=== PATIENT | male | born 1995 | race Caucasian/White ===

== ENCOUNTER 2021-03-21 19:22 | Emergency (ER) | payer BC, SELFPAY ==
[2021-03-21 19:31] VITALS: BP 138/78; PULSE 88; RESP 18; TEMP 36.3; O2SAT 97; BMI 25.0
--- NOTE | 2021-03-21 20:10 | ED.DENTAL ---
HPI - Dental/Oral General Chief complaint: Dental/Oral <OLYA Johnson Last Filed: 03/22/21 01:27> Stated complaint: ear and jaw pain <OLYA Johnson Last Filed: 03/22/21 01:27> Time Seen by Provider: 03/21/21 20:10 <OLYA Johnson Last Filed: 03/22/21 01:27> History of Present Illness HPI Narrative: Patient complains of dental pain, and vomiting Patient had worsening right posterior lower toothache for 2-3 days that has become more and more severely painful so he has been taking what he describes as handfuls of Motrin and Tylenol when asked how many Tylenol he might have taken he says he did not know but probably more than 20 in this day and, and now he is nauseous and vomiting as well, he has no abdominal pain <OLYA Johnson Last Filed: 03/22/21 01:27> Related Data Home medications: Previous Rx's Medication Instructions Recorded amoxicillin 875 mg-potassium 1 tab PO Q12H #14 tab 03/22/21 clavulanate 125 mg tablet (Augmentin) morphine 15 mg immediate release 15 mg PO Q4-6H PRN #10 tab 03/22/21 tablet ondansetron HCl 4 mg tablet 4 mg PO Q6H PRN #10 tab 03/22/21 (Zofran) oxycodone 5 mg tablet 5 mg PO Q6H PRN #10 tab 03/22/21 <OLYA Johnson Last Filed: 03/22/21 01:27> Allergies/adverse reactions: Allergies Allergy/AdvReac Type Severity Reaction Status Date / Time No Known Allergies Allergy Unverified 01/21/20 16:22 [No Known Allergies*] <OLYA Johnson Last Filed: 03/22/21 01:27> Review of Systems Review of Systems: Positive for dental pain and vomiting Negatives are no fever no chills no dizziness no weakness no headache no chest pain no shortness of breath no abdominal pain no diarrhea no dysuria no skin rash no weakness or dizziness <OLYA Johnson Last Filed: 03/22/21 01:27> Yes all other systems are reviewed and are negative <OLYA Johnson Last Filed: 03/22/21 01:27> PMFSH Past Medical History Source: nursing notes reviewed <OLYA Johnson - Last Filed: 03/22/21 01:27> Medical History: Medical History (Updated 03/22/21 @ 01:22 by OLYA Johnson) Asthma <OLYA Johnson - Last Filed: 03/22/21 01:27> Social History Social History: Social History Advance Directives: No Advance Directives Information Provided: No <OLYA Johnson - Last Filed: 03/22/21 01:27> Physical Exam Vital Signs: Vital Signs: Last Vital Signs Temp 97.9 F 03/21/21 21:55 Pulse 67 03/22/21 01:28 Resp 19 03/22/21 01:28 BP 116/68 03/22/21 01:28 Pulse Ox 99 03/22/21 01:28 Body Mass Index 25.0 <OLYA Johnson - Last Filed: 03/22/21 01:27> Vital Signs: Last Vital Signs Temp 97.9 F 03/21/21 21:55 Pulse 67 03/22/21 01:28 Resp 19 03/22/21 01:28 BP 116/68 03/22/21 01:28 Pulse Ox 99 03/22/21 01:28 Body Mass Index 25.0 <Alice Pearl MD - Last Filed: 03/22/21 02:05> General appearance is not uncomfortable and moaning in pain from his tooth as well as retching and vomiting small amounts of non bilious vomit The pupils are anicteric, no pallor The pharynx is mildly dry but otherwise normal in appearance The dental exam shows a decayed and tender right lower rear molar, there is no fluctuant abscess on the gum there is no trismus there is no impairment of breathing or swallowing there is no drooling voice is normal and there is no swelling under the tongue Neck is supple The chest is cleared The abdomen is soft nontender Extremities full range of motion x4, no edema <OLYA Johnson - Last Filed: 03/22/21 01:27> Course Course Course Narrative: Patient's pain was relieved with morphine and nausea was relieved with Zofran and he was tolerating p.o. without vomiting Labs were sent with the concerned that he might have overdosed on his Tylenol as he said he was taking handfuls Tylenol level came back 76 AST and ALT were normal, bilirubin was 1.1 and albumin was 5.2, lactic was 2.2, PT was 13.6, INR 1.2, platelets were normal Case was discussed with attending physician Brittany who advised best plan is to repeat Tylenol level 4 hours after the 1st draw and re-evaluate At 01:00 the case was signed out pending results of lab draw and re-evaluation and discharge of patient <OLYA Johnson - Last Filed: 03/22/21 01:27> Reevaluation(s) Reevaluation #1: Patient signed out to me and on review of repeat Tylenol level it is now under the curve and patient is otherwise stable for discharge to home. <Alice Pearl MD - Last Filed: 03/22/21 02:05> Time: 02:04 <Alice Pearl MD - Last Filed: 03/22/21 02:05> MDM - Dental/Oral Lab Data Result diagrams: : 03/21/21 20:56 03/21/21 20:56 <OLYA Johnson - Last Filed: 03/22/21 01:27> Labs: Lab Results 03/21/21 03/21/21 03/21/21 Range/Units 20:56 20:56 20:56 WBC 11.8 H (4.8-10.8) X10*3/uL RBC 5.31 (4.60-5.80) X10*6/uL Hgb 15.4 (14.0-18.0) g/dl Hct 46.3 (42.0-52.0) % MCV 87.2 (80.0-98.0) fL MCH 29.0 (27.0-33.0) pg MCHC 33.3 (31.0-36.0) g/dl RDW 12.3 (11.0-16.0) % Plt Count 304 (160-400) X10*3/uL MPV 10.3 (9.4-12.4) fL Immature Gran % (Auto) 0.4 (0.0-0.4) % Neut % (Auto) 78.8 H (45-73) % Lymph % (Auto) 10.7 L (20-40) % [place] % (Auto) 9.8 (2-11) % Eos % (Auto) 0.0 (0-4) % Baso % (Auto) 0.3 (0-2) % Lymph # (Auto) 1.3 (1.2-4.9) X10*3/uL [place] # (Auto) 1.2 (0.1-1.2) X10*3/uL Eos # (Auto) 0.0 (0.0-0.4) X10*3/uL Baso # (Auto) 0.0 (0.0-0.2) X10*3/uL Abs Immat Gran (auto) 0.05 H (0.00-0.03) X10*3/uL Absolute Neuts (auto) 9.3 H (2.0-8.3) x10*3/uL Absolute Nucleated RBC 0.000 (0.0-0.012) X10*3/uL Nucleated RBC % (auto) 0.0 (0.0-0.2) /100WBC PT (9.9-13.0) SEC INR (0.9-1.1) Sodium 144 (135-145) mmol/L Potassium 4.0 (3.3-5.1) mmol/L Chloride 109 H (96-108) mmol/L Carbon Dioxide 22 (22-29) mmol/L Anion Gap 17 (12-20) BUN 13 (9-16) mg/dL Creatinine 1.35 (0.5-1.4) mg/dL Estim Creat Clear Calc 80.2 Estimated GFR > 60 Random Glucose 106 (60-115) mg/dL Lactic Acid 2.2 H* (0.5-2.0) mmol/L Lactic Acid Fup @ 2Hr (0.5-2.0) mmol/L Calcium 10.0 (8.4-10.2) mg/dL Total Bilirubin 1.1 H (0.0-1.0) mg/dL Direct Bilirubin 0.5 (0.0-0.5) mg/dL AST 16 (5-37) U/L ALT 19 (0-40) U/L Alkaline Phosphatase 47 (39-117) U/L Total Protein 7.5 (6.5-8.0) g/dL Albumin 5.2 H (3.5-5.0) g/dL Lipase 15 (8-78) U/L Urine Color Urine Appearance Urine pH (5.0-8.0) Ur Specific [place] (1.005-1.025) Urine Protein (NEG-TRACE) MG/DL Urine Glucose (UA) (NEG) MG/DL Urine Ketones (NEG) MG/DL Urine Blood (NEG) Urine Nitrite (NEG) Ur Leukocyte Esterase (NEG) Urine RBC (0) /HPF Urine WBC (0-4) /HPF Ur Squamous Epith Cells /LPF Urine Bacteria /LPF Urine Mucus /LPF Salicylates < 5.0 L (15-30) mg/dL Acetaminophen 78 H* (<30) mcg/mL 03/21/21 03/21/21 03/22/21 Range/Units 20:56 22:46 01:05 WBC (4.8-10.8) X10*3/uL RBC (4.60-5.80) X10*6/uL Hgb (14.0-18.0) g/dl Hct (42.0-52.0) % MCV (80.0-98.0) fL MCH (27.0-33.0) pg MCHC (31.0-36.0) g/dl RDW (11.0-16.0) % Plt Count (160-400) X10*3/uL MPV (9.4-12.4) fL Immature Gran % (Auto) (0.0-0.4) % Neut % (Auto) (45-73) % Lymph % (Auto) (20-40) % [place] % (Auto) (2-11) % Eos % (Auto) (0-4) % Baso % (Auto) (0-2) % Lymph # (Auto) (1.2-4.9) X10*3/uL [place] # (Auto) (0.1-1.2) X10*3/uL Eos # (Auto) (0.0-0.4) X10*3/uL Baso # (Auto) (0.0-0.2) X10*3/uL Abs Immat Gran (auto) (0.00-0.03) X10*3/uL Absolute Neuts (auto) (2.0-8.3) x10*3/uL Absolute Nucleated RBC (0.0-0.012) X10*3/uL Nucleated RBC % (auto) (0.0-0.2) /100WBC PT 13.6 H (9.9-13.0) SEC INR 1.2 H (0.9-1.1) Sodium (135-145) mmol/L Potassium (3.3-5.1) mmol/L Chloride (96-108) mmol/L Carbon Dioxide (22-29) mmol/L Anion Gap (12-20) BUN (9-16) mg/dL Creatinine (0.5-1.4) mg/dL Estim Creat Clear Calc Estimated GFR Random Glucose (60-115) mg/dL Lactic Acid (0.5-2.0) mmol/L Lactic Acid Fup @ 2Hr 1.7 (0.5-2.0) mmol/L Calcium (8.4-10.2) mg/dL Total Bilirubin (0.0-1.0) mg/dL Direct Bilirubin (0.0-0.5) mg/dL AST (5-37) U/L ALT (0-40) U/L Alkaline Phosphatase (39-117) U/L Total Protein (6.5-8.0) g/dL Albumin (3.5-5.0) g/dL Lipase (8-78) U/L Urine Color YELLOW Urine Appearance CLEAR Urine pH 6.0 (5.0-8.0) Ur Specific [place] >= 1.030 H (1.005-1.025) Urine Protein 1+ H (NEG-TRACE) MG/DL Urine Glucose (UA) NEG (NEG) MG/DL Urine Ketones 5 (NEG) MG/DL Urine Blood NEG (NEG) Urine Nitrite NEG (NEG) Ur Leukocyte Esterase NEG (NEG) Urine RBC 0-2 (0) /HPF Urine WBC 0-2 (0-4) /HPF Ur Squamous Epith Cells TRACE /LPF Urine Bacteria NONE /LPF Urine Mucus TRACE /LPF Salicylates (15-30) mg/dL Acetaminophen (<30) mcg/mL 03/22/21 Range/Units 01:05 WBC (4.8-10.8) X10*3/uL RBC (4.60-5.80) X10*6/uL Hgb (14.0-18.0) g/dl Hct (42.0-52.0) % MCV (80.0-98.0) fL MCH (27.0-33.0) pg MCHC (31.0-36.0) g/dl RDW (11.0-16.0) % Plt Count (160-400) X10*3/uL MPV (9.4-12.4) fL Immature Gran % (Auto) (0.0-0.4) % Neut % (Auto) (45-73) % Lymph % (Auto) (20-40) % [place] % (Auto) (2-11) % Eos % (Auto) (0-4) % Baso % (Auto) (0-2) % Lymph # (Auto) (1.2-4.9) X10*3/uL [place] # (Auto) (0.1-1.2) X10*3/uL Eos # (Auto) (0.0-0.4) X10*3/uL Baso # (Auto) (0.0-0.2) X10*3/uL Abs Immat Gran (auto) (0.00-0.03) X10*3/uL Absolute Neuts (auto) (2.0-8.3) x10*3/uL Absolute Nucleated RBC (0.0-0.012) X10*3/uL Nucleated RBC % (auto) (0.0-0.2) /100WBC PT (9.9-13.0) SEC INR (0.9-1.1) Sodium (135-145) mmol/L Potassium (3.3-5.1) mmol/L Chloride (96-108) mmol/L Carbon Dioxide (22-29) mmol/L Anion Gap (12-20) BUN (9-16) mg/dL Creatinine (0.5-1.4) mg/dL Estim Creat Clear Calc Estimated GFR Random Glucose (60-115) mg/dL Lactic Acid (0.5-2.0) mmol/L Lactic Acid Fup @ 2Hr (0.5-2.0) mmol/L Calcium (8.4-10.2) mg/dL Total Bilirubin (0.0-1.0) mg/dL Direct Bilirubin (0.0-0.5) mg/dL AST (5-37) U/L ALT (0-40) U/L Alkaline Phosphatase (39-117) U/L Total Protein (6.5-8.0) g/dL Albumin (3.5-5.0) g/dL Lipase (8-78) U/L Urine Color Urine Appearance Urine pH (5.0-8.0) Ur Specific [place] (1.005-1.025) Urine Protein (NEG-TRACE) MG/DL Urine Glucose (UA) (NEG) MG/DL Urine Ketones (NEG) MG/DL Urine Blood (NEG) Urine Nitrite (NEG) Ur Leukocyte Esterase (NEG) Urine RBC (0) /HPF Urine WBC (0-4) /HPF Ur Squamous Epith Cells /LPF Urine Bacteria /LPF Urine Mucus /LPF Salicylates (15-30) mg/dL Acetaminophen 42 H (<30) mcg/mL <OLYA Johnson - Last Filed: 03/22/21 01:27> Lab Results 03/21/21 03/21/21 03/21/21 Range/Units 20:56 20:56 20:56 WBC 11.8 H (4.8-10.8) X10*3/uL RBC 5.31 (4.60-5.80) X10*6/uL Hgb 15.4 (14.0-18.0) g/dl Hct 46.3 (42.0-52.0) % MCV 87.2 (80.0-98.0) fL MCH 29.0 (27.0-33.0) pg MCHC 33.3 (31.0-36.0) g/dl RDW 12.3 (11.0-16.0) % Plt Count 304 (160-400) X10*3/uL MPV 10.3 (9.4-12.4) fL Immature Gran % (Auto) 0.4 (0.0-0.4) % Neut % (Auto) 78.8 H (45-73) % Lymph % (Auto) 10.7 L (20-40) % [place] % (Auto) 9.8 (2-11) % Eos % (Auto) 0.0 (0-4) % Baso % (Auto) 0.3 (0-2) % Lymph # (Auto) 1.3 (1.2-4.9) X10*3/uL [place] # (Auto) 1.2 (0.1-1.2) X10*3/uL Eos # (Auto) 0.0 (0.0-0.4) X10*3/uL Baso # (Auto) 0.0 (0.0-0.2) X10*3/uL Abs Immat Gran (auto) 0.05 H (0.00-0.03) X10*3/uL Absolute Neuts (auto) 9.3 H (2.0-8.3) x10*3/uL Absolute Nucleated RBC 0.000 (0.0-0.012) X10*3/uL Nucleated RBC % (auto) 0.0 (0.0-0.2) /100WBC PT (9.9-13.0) SEC INR (0.9-1.1) Sodium 144 (135-145) mmol/L Potassium 4.0 (3.3-5.1) mmol/L Chloride 109 H (96-108) mmol/L Carbon Dioxide 22 (22-29) mmol/L Anion Gap 17 (12-20) BUN 13 (9-16) mg/dL Creatinine 1.35 (0.5-1.4) mg/dL Estim Creat Clear Calc 80.2 Estimated GFR > 60 Random Glucose 106 (60-115) mg/dL Lactic Acid 2.2 H* (0.5-2.0) mmol/L Lactic Acid Fup @ 2Hr (0.5-2.0) mmol/L Calcium 10.0 (8.4-10.2) mg/dL Total Bilirubin 1.1 H (0.0-1.0) mg/dL Direct Bilirubin 0.5 (0.0-0.5) mg/dL AST 16 (5-37) U/L ALT 19 (0-40) U/L Alkaline Phosphatase 47 (39-117) U/L Total Protein 7.5 (6.5-8.0) g/dL Albumin 5.2 H (3.5-5.0) g/dL Lipase 15 (8-78) U/L Urine Color Urine Appearance Urine pH (5.0-8.0) Ur Specific [place] (1.005-1.025) Urine Protein (NEG-TRACE) MG/DL Urine Glucose (UA) (NEG) MG/DL Urine Ketones (NEG) MG/DL Urine Blood (NEG) Urine Nitrite (NEG) Ur Leukocyte Esterase (NEG) Urine RBC (0) /HPF Urine WBC (0-4) /HPF Ur Squamous Epith Cells /LPF Urine Bacteria /LPF Urine Mucus /LPF Salicylates < 5.0 L (15-30) mg/dL Acetaminophen 78 H* (<30) mcg/mL 03/21/21 03/21/21 03/22/21 Range/Units 20:56 22:46 01:05 WBC (4.8-10.8) X10*3/uL RBC (4.60-5.80) X10*6/uL Hgb (14.0-18.0) g/dl Hct (42.0-52.0) % MCV (80.0-98.0) fL MCH (27.0-33.0) pg MCHC (31.0-36.0) g/dl RDW (11.0-16.0) % Plt Count (160-400) X10*3/uL MPV (9.4-12.4) fL Immature Gran % (Auto) (0.0-0.4) % Neut % (Auto) (45-73) % Lymph % (Auto) (20-40) % [place] % (Auto) (2-11) % Eos % (Auto) (0-4) % Baso % (Auto) (0-2) % Lymph # (Auto) (1.2-4.9) X10*3/uL [place] # (Auto) (0.1-1.2) X10*3/uL Eos # (Auto) (0.0-0.4) X10*3/uL Baso # (Auto) (0.0-0.2) X10*3/uL Abs Immat Gran (auto) (0.00-0.03) X10*3/uL Absolute Neuts (auto) (2.0-8.3) x10*3/uL Absolute Nucleated RBC (0.0-0.012) X10*3/uL Nucleated RBC % (auto) (0.0-0.2) /100WBC PT 13.6 H (9.9-13.0) SEC INR 1.2 H (0.9-1.1) Sodium (135-145) mmol/L Potassium (3.3-5.1) mmol/L Chloride (96-108) mmol/L Carbon Dioxide (22-29) mmol/L Anion Gap (12-20) BUN (9-16) mg/dL Creatinine (0.5-1.4) mg/dL Estim Creat Clear Calc Estimated GFR Random Glucose (60-115) mg/dL Lactic Acid (0.5-2.0) mmol/L Lactic Acid Fup @ 2Hr 1.7 (0.5-2.0) mmol/L Calcium (8.4-10.2) mg/dL Total Bilirubin (0.0-1.0) mg/dL Direct Bilirubin (0.0-0.5) mg/dL AST (5-37) U/L ALT (0-40) U/L Alkaline Phosphatase (39-117) U/L Total Protein (6.5-8.0) g/dL Albumin (3.5-5.0) g/dL Lipase (8-78) U/L Urine Color YELLOW Urine Appearance CLEAR Urine pH 6.0 (5.0-8.0) Ur Specific [place] >= 1.030 H (1.005-1.025) Urine Protein 1+ H (NEG-TRACE) MG/DL Urine Glucose (UA) NEG (NEG) MG/DL Urine Ketones 5 (NEG) MG/DL Urine Blood NEG (NEG) Urine Nitrite NEG (NEG) Ur Leukocyte Esterase NEG (NEG) Urine RBC 0-2 (0) /HPF Urine WBC 0-2 (0-4) /HPF Ur Squamous Epith Cells TRACE /LPF Urine Bacteria NONE /LPF Urine Mucus TRACE /LPF Salicylates (15-30) mg/dL Acetaminophen (<30) mcg/mL 03/22/21 Range/Units 01:05 WBC (4.8-10.8) X10*3/uL RBC (4.60-5.80) X10*6/uL Hgb (14.0-18.0) g/dl Hct (42.0-52.0) % MCV (80.0-98.0) fL MCH (27.0-33.0) pg MCHC (31.0-36.0) g/dl RDW (11.0-16.0) % Plt Count (160-400) X10*3/uL MPV (9.4-12.4) fL Immature Gran % (Auto) (0.0-0.4) % Neut % (Auto) (45-73) % Lymph % (Auto) (20-40) % [place] % (Auto) (2-11) % Eos % (Auto) (0-4) % Baso % (Auto) (0-2) % Lymph # (Auto) (1.2-4.9) X10*3/uL [place] # (Auto) (0.1-1.2) X10*3/uL Eos # (Auto) (0.0-0.4) X10*3/uL Baso # (Auto) (0.0-0.2) X10*3/uL Abs Immat Gran (auto) (0.00-0.03) X10*3/uL Absolute Neuts (auto) (2.0-8.3) x10*3/uL Absolute Nucleated RBC (0.0-0.012) X10*3/uL Nucleated RBC % (auto) (0.0-0.2) /100WBC PT (9.9-13.0) SEC INR (0.9-1.1) Sodium (135-145) mmol/L Potassium (3.3-5.1) mmol/L Chloride (96-108) mmol/L Carbon Dioxide (22-29) mmol/L Anion Gap (12-20) BUN (9-16) mg/dL Creatinine (0.5-1.4) mg/dL Estim Creat Clear Calc Estimated GFR Random Glucose (60-115) mg/dL Lactic Acid (0.5-2.0) mmol/L Lactic Acid Fup @ 2Hr (0.5-2.0) mmol/L Calcium (8.4-10.2) mg/dL Total Bilirubin (0.0-1.0) mg/dL Direct Bilirubin (0.0-0.5) mg/dL AST (5-37) U/L ALT (0-40) U/L Alkaline Phosphatase (39-117) U/L Total Protein (6.5-8.0) g/dL Albumin (3.5-5.0) g/dL Lipase (8-78) U/L Urine Color Urine Appearance Urine pH (5.0-8.0) Ur Specific [place] (1.005-1.025) Urine Protein (NEG-TRACE) MG/DL Urine Glucose (UA) (NEG) MG/DL Urine Ketones (NEG) MG/DL Urine Blood (NEG) Urine Nitrite (NEG) Ur Leukocyte Esterase (NEG) Urine RBC (0) /HPF Urine WBC (0-4) /HPF Ur Squamous Epith Cells /LPF Urine Bacteria /LPF Urine Mucus /LPF Salicylates (15-30) mg/dL Acetaminophen 42 H (<30) mcg/mL <Alice Pearl MD - Last Filed: 03/22/21 02:05> Discharge Plan Discharge Clinical Impression: Dental caries, Accidental acetaminophen overdose, Vomiting <OLYA Johnson - Last Filed: 03/22/21 01:27> Patient Disposition: Home, Self-Care <OLYA Johnson - Last Filed: 03/22/21 01:27> Additional Instructions: Are testing showed that you overdosed on Tylenol but likely you have not caused critical injury Always use medication as prescribed and Tylenol in particular can be very dangerous if too much is taken It will not help pain in any way to take more than the recommended dose of Tylenol or Motrin Follow with dentist for dental pain and we started an antibiotic as well as pain medicine Return to the ER any time any worse condition or any concerns <OLYA Johnson - Last Filed: 03/22/21 01:27> Prescriptions: New ondansetron HCl [Zofran] 4 mg tablet 4 mg PO Q6H PRN (Reason: nausea and vomiting) Qty: 10 RF: 0 amoxicillin-pot clavulanate [Augmentin] 875-125 mg tablet 1 tab PO Q12H Qty: 14 RF: 0 oxycodone 5 mg tablet 5 mg PO Q6H PRN (Reason: pain) Qty: 10 RF: 0 morphine 15 mg tablet 15 mg PO Q4-6H PRN (Reason: pain) Qty: 10 RF: 0 <OLYA Johnson - Last Filed: 03/22/21 01:27> Referrals: Janak Graham DO, MD [Primary Care Provider] - 2 days <OLYA Johnson - Last Filed: 03/22/21 01:27>
[2021-03-21 21:01] LABS: MANUAL DIFF FLAG NO
[2021-03-21 21:03] LABS: Basophils Percent Auto 0.3 % (0-2); Hematocrit 46.3 % (42.0-52.0); Hemoglobin 15.4 g/dl (14.0-18.0); Imm Gran Abs Auto 0.05 X10*3/uL (0.00-0.03); Imm Gran Pct Auto 0.4 % (0.0-0.4); Lymphocytes Absolute Auto 1.3 X10*3/uL (1.2-4.9); Lymphocytes Percent Auto 10.7 % (20-40); Mean Corpuscular HGB Conc 33.3 g/dl (31.0-36.0); Mean Corpuscular Volume 87.2 fL (80.0-98.0); Mean Platelet Volume 10.3 fL (9.4-12.4); Monocytes Absolute Auto 1.2 X10*3/uL (0.1-1.2); Monocytes Percent Auto 9.8 % (2-11); Neutrophils Absolute Auto 9.3 x10*3/uL (2.0-8.3); Neutrophils Percent Auto 78.8 % (45-73); Platelet Count 304 X10*3/uL (160-400); Red Blood Count 5.31 X10*6/uL (4.60-5.80); Red Cell Distribution Width 12.3 % (11.0-16.0); White Blood Count 11.8 X10*3/uL (4.8-10.8)
[2021-03-21 21:11] LABS: INTERNATIONAL NORM RATIO 1.2 (0.9-1.1); Prothrombin Time 13.6 SEC (9.9-13.0)
[2021-03-21 21:20] LABS: Lactic Acid 2.2 mmol/L (0.5-2.0)
[2021-03-21] MEDS: Morphine Sulfate 4 MG/ML CARTRIDGE IVPUSH ×2 (21:21→22:13)
[2021-03-21] MEDS: ondansetron HCL 4 MG/2 ML VIAL IVPUSH ×2 (21:22→23:13)
[2021-03-21 21:25] LABS: Alanine Aminotransferase 19 U/L (0-40); Albumin Level 5.2 g/dL (3.5-5.0); Alkaline Phosphatase 47 U/L (39-117); Anion Gap 17 (12-20); Aspartate Amino Transferase 16 U/L (5-37); Bilirubin Direct 0.5 mg/dL (0.0-0.5); Bilirubin Total 1.1 mg/dL (0.0-1.0); Blood Urea Nitrogen 13 mg/dL (9-16); Carbon Dioxide 22 mmol/L (22-29); Chloride 109 mmol/L (96-108); Creatinine Clr Calc Pharmacy 80.2; Estimated Glomerular Filt Rate > 60; Glucose Random 106 mg/dL (60-115); Lipase 15 U/L (8-78); Salicylate < 5.0 mg/dL (15-30); Sodium 144 mmol/L (135-145); Total Protein 7.5 g/dL (6.5-8.0)
[2021-03-21 21:28] VITALS: PULSE 77; RESP 16; O2SAT 99
[2021-03-21] MEDS: 0.9 % Sodium Chloride 1,000 ML 999 ML IVCONT (21:43)
[2021-03-21 21:55] VITALS: BP 138/79; PULSE 59; RESP 20; TEMP 36.6; O2SAT 100
[2021-03-21 22:53] LABS: Appearance Urine CLEAR; Color Urine YELLOW; Glucose Urine UA NEG (NEG); Leukocyte Esterase Urine NEG (NEG); Nitrite Urine NEG (NEG); Specific Gravity - Urine >= 1.030 (1.005-1.025); UACC Culture Trigger NO; Urine Blood NEG (NEG); Urine Ketones 5 MG/DL (NEG); Urine Protein 1+ MG/DL (NEG-TRACE)
[2021-03-21 22:53] LABS: Acetaminophen LAB 78 mcg/mL (<30)
[2021-03-21 23:00] LABS: Reflex Lactate? Lactic Acid Added
[2021-03-21 23:07] LABS: RBC Urine 0-2 /HPF (0); Squamous Epithelial Cell Urine TRACE /LPF; WBC Urine 0-2 /HPF (0-4)
[2021-03-21 23:08] LABS: Mucus Urine TRACE /LPF
--- NOTE | 2021-03-22 00:27 | PC.NURSE ---
PER OLYA VINCENT, WE ARE NOT CONCERNED FOR LAC AT THIS TIME NO DRAW NEEDED. PT WILL GET REPEAT ACETAMINOPHEN AT 12:56 AM.
[2021-03-22] MEDS: Amoxicillin/Potassium Clav 875 MG TABLET PO (00:50)
--- NOTE | 2021-03-22 00:57 | PC.NURSE ---
PT MOVED TO MAIN ED BED 20 REPORT GIVEN TO ANAHI STEWART.
[2021-03-22 01:24] LABS: ~Lactic Acid-LAB USE ONLY 1.7 mmol/L (0.5-2.0)
[2021-03-22] MEDS: oxyCODONE HCl Immed Release 5 MG TABLET 10 MG PO (01:26)
[2021-03-22 01:28] VITALS: BP 116/68; PULSE 67; RESP 19; O2SAT 99
[2021-03-22 01:28] LABS: Acetaminophen LAB 42 mcg/mL (<30)
[2021-03-22 03:44] VITALS: BP 136/72; PULSE 66; RESP 19; TEMP 37.1; O2SAT 96
== END 2021-03-22 03:55 | disposition home or self-care (01) ==
PROVIDERS: Physician Assistant Medical; Emergency Provider Emergency Medicine; PCP Internal Medicine
DX: K02.9 Dental caries, unspecified (principal); T39.1X1A Poisoning by 4-Aminophenol derivatives, accidental (unintentional), initial encounter; Y92.009 Unspecified place in unspecified non-institutional (private) residence as the place of occurrence of the external cause; R11.10 Vomiting, unspecified; Z79.899 Other long term (current) drug therapy
CPT/HCPCS: 36415; 80048; 80076; 80143; 80179; 81001; 83605; 83690; 85025; 85610; 96361; 96374; 96375; 96376; 99284; J2270; J2405

== ENCOUNTER 2024-06-24 19:51 | Inpatient (IN) | payer MEDICAID, SELFPAY ==
--- NOTE | ~2024-06-24 | CT_ITS ---
EXAMINATION: CT ABDOMEN AND PELVIS WITHOUT AND WITH CONTRAST CLINICAL INFORMATION: Lower abdominal pain, coffee-ground emesis, dark stool. COMPARISON: CT abdomen and pelvis 10/05/2017 TECHNIQUE: Multidetector volumetric imaging was performed of the abdomen and pelvis before and after the IV administration of 80 mL of Omnipaque 300 intravenous contrast. There are acquisitions acquired in noncontrast, arterial phase, and in the delayed phase of enhancement. Sagittal and coronal reformatted images were obtained on the technologist's workstation. This CT examination was performed using dose optimization techniques as appropriate, variously including the following: *Automated exposure control *Adjustment of mA and/or kV according to patient size (this includes techniques or standardized protocols for targeted exams where dose is matched to indication/reason for exam; i.e. extremities or head) *Use of iterative reconstruction technique FINDINGS: LUNG BASES: The visualized lung bases are unremarkable. LIVER, GALLBLADDER, AND BILIARY TREE: The liver is normal in size, shape, and attenuation. No focal hepatic lesion or biliary ductal dilatation is present. The gallbladder is unremarkable with no evidence of radiopaque gallstones, gallbladder wall thickening, or obvious pericholecystic inflammatory changes. PANCREAS: Unremarkable SPLEEN: Unremarkable ADRENAL GLANDS: Unremarkable KIDNEYS AND URETERS: The kidneys are normal in size, shape, and attenuation. No hydronephrosis or hydroureter. 2 mm nonobstructing calculus right mid pole. No perinephric stranding. BLADDER: Unremarkable GASTROINTESTINAL TRACT: Small type I hiatus hernia. -Diffuse wall thickening and hyperenhancement of the stomach, with mild hyperattenuation in the posterior body of the stomach, which also demonstrates mild enhancement on the arterial phase. (Series 9, image 32). No definite contrast pooling or extravasation seen on delayed phase. -On the arterial phase, there is a posterior focus of transmural enhancement within the duodenal bulb, best seen series 16, image 90 -No small bowel foci of hyperattenuation or enhancement. No pooling seen. -No colonic foci of hyperattenuation or definitive abnormal enhancement. No pooling seen. No wall thickening or inflammation evident. -A normal appendix is visualized. There is no rectal abnormalities. ABDOMINAL WALL: No significant hernia is appreciated. LYMPH NODES: None enlarged by size criteria. VASCULAR: Unremarkable PELVIC VISCERA: Unremarkable OSSEOUS STRUCTURES: Unremarkable CT/CT gi bleed abd pel wo/w IVcon IMPRESSION: 1. Findings consistent with gastritis with wall thickening and mucosal hyperenhancement. Possible subtle focus of enhancement on the delayed acquisition within the posterior gastric body. No pooling. There is also some a linear focus of hyperenhancement of the posterior duodenal bulb without pooling present. Findings are suspicious for duodenal peptic ulcer/ bleeding, but are subtle findings and not definitive. Correlation with EGD is recommended. 2. No evidence of active bleeding in the small bowel, duodenum, or colon. No inflammation or dilatation seen. 3. Small type I hiatus hernia. 4. 2 mm nonobstructing right renal calculus. Electronically signed by: Rajan Castillo MD 06/25/2024 11:25 AM [facility]
--- NOTE | ~2024-06-24 | XR_ITS ---
CLINICAL HISTORY: cough 2 view chest x-ray Comparison: None Findings: The lungs are clear. Normal size heart. No acute fracture. IMPRESSION: 1. No acute findings. This document has been electronically signed by: Maci Valero MD on 06/24/2024 20:31:59
[2024-06-24 20:00] VITALS: BP 116/70; PULSE 94; RESP 20; TEMP 37.1; O2SAT 98; BMI 25.8
--- NOTE | 2024-06-24 20:01 | ECG_ITS ---
Test Reason : abd pain Blood Pressure : */* mmHG Vent. Rate : 85 BPM Atrial Rate : 85 BPM P-R Int : 124 ms QRS Dur : 82 ms QT Int : 340 ms P-R-T Axes : 60 49 27 degrees QTcB Int : 404 ms Normal sinus rhythm with sinus arrhythmia Normal ECG No previous ECGs available Referred By: Marquise Quintero Electronically Signed By: CONNER MCDONALD
--- NOTE | 2024-06-24 20:01 | ED.GENADULT ---
HPI - General Adult General Chief complaint: Abdominal Pain Stated complaint: Flu A - Sent by Urgent Care Time Seen by Provider: 06/25/24 09:03 Source: patient and RN notes reviewed Mode of arrival: ambulatory Limitations: no limitations History of Present Illness ED Provider: Agata Weldon PA-C [facility] narrative: This is a 28-year-old male, with no known medical problems, who presents emergency department with concerns for cough, congestion, intermittent chest pain which only occurs with coughing, abdominal pain, nausea, vomiting and diarrhea. Patient states that his symptoms started off with coughing congestion on Saturday, 4 days ago, and then over the last several days he has developed lower abdominal pain. Patient reports that on Saturday he noticed coffee-ground appearing emesis, and dark stool. Patient reports that he has been taking cold and flu medications. He denies any Pepto-Bismol use. He reports subjective fevers and chills. Also endorsing body aches. He does report lower abdominal pain. Denies history of similar symptoms in the past. He does not regularly drink alcohol. Patient reports that he does take ibuprofen, I asked if he takes ibuprofen every day, he replies no. He states that he has been taking cold and flu medication for his symptoms. No other complaints or concerns at this time. MD complaint: Abdominal pain, nausea, vomiting, cough Onset (ago): day(s) Relieving factors: none Exacerbating factors: none Associated symptoms: denies other symptoms Treatments prior to arrival: none Related Data Home Medications ?Medication ?Instructions ?Recorded ?Confirmed No Known Home Meds 06/25/24 06/25/24 Allergies Allergy/AdvReac Type Severity Reaction Status Date / Time No Known Allergies Allergy Verified 06/24/24 20:01 [No Known Allergies*] Review of Systems Review of Systems: Yes all other systems are reviewed and are negative Constitutional: Constitutional: Reports as per [facility] Past Medical History Medical History (Updated 06/25/24 @ 14:52 by OLYA Ibarra) Asthma Social History Social History Smoked in Last 30 Days: Yes Advance Directives: No Advance Directives Information Provided: Yes Physical Exam ED Vital Signs: Vital Signs - 24 hr 06/24/24 20:00 06/25/24 04:21 06/25/24 09:01 Temperature 98.7 F 99.2 F Pulse Rate 94 76 76 Respiratory Rate 20 20 17 Blood Pressure 116/70 109/77 127/71 Pulse Oximetry 98 98 98 Oxygen Delivery Method Room Air Room Air Room Air 06/25/24 12:19 Temperature 97.5 F Pulse Rate 78 Respiratory Rate 17 Blood Pressure 121/71 Pulse Oximetry 99 Oxygen Delivery Method Room Air BMI result Body Mass Index 25.8 Const General: cooperative, comfortable and no acute distress Orientation/consciousness: patient oriented x3 Limitations: no limitations HENMT Head: Yes normal to inspection, Yes normocephalic and Yes atraumatic Ears: hearing grossly normal bilaterally General nose exam: Normal external nose present Face and sinus: Yes normal facial exam Mouth: Normal oral and palatal mucosa present, oropharynx normal and moist mucous membranes Throat: Yes posterior oropharynx normal Eyes General: appearance normal, both eyes and all related structures Eyelids: Yes eyelids normal Conjunctivae: conjunctivae normal Sclerae: sclerae normal Pupils: Equal, round and reactive pupils present EOM: EOMs intact bilaterally Neck Neck: Yes normal visual inspection, Yes full ROM and Yes no lymphadenopathy Lymphatic: no lymphadenopathy noted Chest Chest palpation & inspection: normal inspection of the chest Resp Effort & Inspection: normal respiratory effort and able to speak in complete sentences Auscultation: clear to auscultation bilaterally, no crackles, no rales, no rhonchi and no wheezes Cardio Rate: regular rate Rhythm: regular rhythm Heart sounds: S1 normal heart sound present and S2 normal heart sound present GI Other: Abdomen is soft, with tenderness palpation in the lower abdomen, guarding noted. Patient refusing rectal exam. Stool is dark however does not appear to be black. Inspection: Yes normal to inspection Skin General skin exam: no rashes or lesions noted Trauma: no lacerations or abrasions Wounds: no wounds Neuro General: patient oriented x3 and moves all extremities Cranial nerves: Yes Equal, round and reactive pupils present Extrem General: Yes normal to inspection Right upper extremity: normal to inspection Left upper extremity: normal to inspection Right lower extremity: normal to inspection Left lower extremity: normal to inspection Course Course Course Narrative: RME, this is a rapid medical exam performed by Shen Quintero please refer to primary provider for complete H&P- 28-year-old male presents for evaluation of vomiting ?coffee-grounds. ? The patient has been coughing and vomiting since Saturday. He went to urgent care and tested positive for the flu. In his words he reports that yesterday he was vomiting coffee-grounds. Plan for labs including H&H and coags. Reevaluation(s) Reevaluation #1: CT scan returns revealing findings consistent with gastritis with wall thickening and mucosal enhancement. Possible subtle focus of enhancement on the delayed acquisition within the posterior gastric body. No pooling. There is also some linear focus of hyperenhancement of the posterior duodenal bulb without pooling present. Findings are suspicious for duodenal peptic ulcer/bleeding. They are subtle findings but not definitive. Recommending correlation with EGD. No evidence of active bleeding in the small bowel, duodenum or colon. No inflammation or dilatation seen. There is a small type 1 hiatal hernia, and a 2 mm nonobstructing right renal calculus. Stool occult was collected and sent, negative today. Patient refuses rectal exam. We will reach out to Dr. Villalta, GI specialist for further recommendations. Time: 12:14 Reevaluation #2: Dr. Villalta recommending repeat CBC after IV fluids. Time: 12:53 Reevaluation #3: Repeat CBC revealing drop in hemoglobin and hematocrit at 13 0.9/40.7. I discussed with Dr. Villalta, who states that patient should be admitted for GI bleed. He was brought to my attention by the hospitalist that he disclosed that he was taking handfuls of Tylenol and Motrin, he did not disclose this to me. I added on a Tylenol and salicylate level to his workup. Time: 14:52 Additional Reevaluation(s): 1549 - Tylenol and salicylate levels within normal limits transfer of care initiated to the hospital service. 1604 - Hospitalist requesting poison control consultation given patient reporting taking handfuls of ibuprofen. No AYSHA, no acidosis, provide supportive care, no trending labs other than H&H. No other interventions at this time. When I discussed with patient, he is unable to report to me when the last time he took a ?handful? of ibuprofen. He states that he does not take handfuls of Tylenol. States that he believes he lasted the several days ago however he is unable to quantify nor tell me specifically when the last time he did this. I stressed the importance of not doing this as this can be very harmful to his health. Transfer of care initiated to the hospital service. Medications Administered Generic Name Dose Route Start Last Admin Trade Name Freq PRN Reason Stop Dose Admin Sodium Chloride 1,000 mls @ 100 mls/hr 06/25/24 15:15 06/25/24 16:03 Ns IVCONT 100 mls/hr .Q10H CHARLENE Administration Ondansetron HCl 4 mg 06/25/24 15:15 06/25/24 16:01 Ondansetron Hcl 4 Mg/2 Ml Vial IVPUSH 4 mg Q6H CHARLENE Administration Pantoprazole Sodium 40 mg 06/25/24 16:30 06/25/24 16:01 Pantoprazole Sodium 40 Mg/10 Ml Vial IVPUSH 40 mg BID@0630,1630 CHARLENE Administration Sodium Chloride 3 ml 06/25/24 16:00 06/25/24 16:05 0.9 % Sodium Chloride Flush 3 Ml Syringe IVFLUSH Not Given QSHIFT CHARLENE Discontinued Medications Generic Name Dose Route Start Last Admin Trade Name Freq PRN Reason Stop Dose Admin Diphenhydramine HCl 25 mg 06/25/24 10:12 06/25/24 10:18 Diphenhydramine Hcl 50 Mg/Ml Vial IVPUSH 06/25/24 10:13 25 mg ONCE ONE Administration Acetaminophen 1,000 mg in 100 mls @ 400 mls/hr 06/25/24 09:14 06/25/24 10:37 Ofirmev IV 06/25/24 09:28 Infused ONCE ONE Infusion Lactated Ringer's 1,000 mls @ 999 mls/hr 06/25/24 09:17 06/25/24 11:11 Lr IV 06/25/24 10:17 Infused .Q1H1M ONE Infusion Lactated Ringer's 1,000 mls @ 999 mls/hr 06/25/24 11:51 06/25/24 13:44 Lr IV 06/25/24 12:51 Infused .Q1H1M ONE Infusion Iohexol 100 ml 06/25/24 11:04 06/25/24 11:04 Iohexol 350 Mg/Ml 100 Ml Infus..Btl IV 06/25/24 11:05 80 ml ONCE ONE Administration Metoclopramide HCl 10 mg 06/25/24 10:12 06/25/24 10:18 Metoclopramide Hcl 10 Mg/2 Ml Vial IVPUSH 06/25/24 10:13 10 mg ONCE ONE Administration Ondansetron HCl 4 mg 06/25/24 04:23 06/25/24 04:25 Ondansetron Odt 4 Mg Tab.[place]ina CHANG 06/25/24 04:24 4 mg ONCE ONE Administration Pantoprazole Sodium 80 mg 06/25/24 09:23 06/25/24 09:57 Pantoprazole Sodium 40 Mg/10 Ml Vial IVPUSH 06/25/24 09:24 80 mg ONCE ONE Administration Medical Decision Making Medical Decision Making [facility] Narrative: This is a 28-year-old male who presents emergency department with abdominal pain, and dark vomit and dark stool. Patient was diagnosed with influenza at an urgent care yesterday but was sent to the emergency room secondary to coffee-ground appearing vomit. Patient has been in the emergency room for approximately 13 hours prior to being seen secondary to prolonged wait times. I evaluated patient at approximately 9:05 a.m. this morning. Labs were performed at 9:16 p.m. yesterday therefore repeat labs were ordered. Initial labs revealed no leukocytosis, stable H&H, BUN 22, creatinine 1.04. Given elevated BUN to creatinine ratio, this can indicate GI bleed. Abdomen is soft however patient with tenderness palpation in the lower abdomen. No rebound, positive guarding. Urine with high specific gravity, does not appear to be infected. We will repeat labs, hydrate with LR, we will also medicate with Protonix, and Tylenol. We will continue to monitor. He is not feeling nauseous at this time. Chest x-ray was ordered revealing no acute findings. Plan: Labs, UA, Differential Diagnosis Differential Diagnoses: The differential diagnosis associated with the presentation includes GI bleed, gastritis, peptic ulcer disease, bleeding ulcer, Alexandra-Bautista tear-unlikely, dehydration, electrolyte derangement Lab Data [facility] Lab Attestation statement: I reviewed the patient's lab results. See [facility] 06/25/24 15:21 06/25/24 09:28 Labs: Lab Results 06/24/24 06/25/24 06/25/24 Range/Units 21:16 04:26 09:28 WBC 6.1 6.3 (4.8-10.8) X10*3/uL RBC 5.52 5.45 (4.60-5.80) X10*6/uL Hgb 16.3 16.1 (14.0-18.0) g/dl Hct 47.6 46.8 (42.0-52.0) % MCV 86.2 85.9 (80.0-98.0) fL MCH 29.5 29.5 (27.0-33.0) pg MCHC 34.2 34.4 (31.0-36.0) g/dl RDW 12.5 12.7 (11.0-16.0) % Plt Count 165 D 158 L (160-400) X10*3/uL MPV 10.3 10.3 (9.4-12.4) fL Immature Gran % (Auto) 0.7 H 0.3 (0.0-0.4) % Neut % (Auto) 63.0 51.8 (45-73) % Lymph % (Auto) 15.7 L 28.2 (20-40) % [place] % (Auto) 17.7 H 19.1 H (2-11) % Eos % (Auto) 2.6 0.0 (0-4) % Baso % (Auto) 0.3 0.6 (0-2) % Lymph # (Auto) 1.0 L 1.8 (1.2-4.9) X10*3/uL [place] # (Auto) 1.1 1.2 (0.1-1.2) X10*3/uL Eos # (Auto) 0.2 0.0 (0.0-0.4) X10*3/uL Baso # (Auto) 0.0 0.0 (0.0-0.2) X10*3/uL Abs Immat Gran (auto) 0.04 H 0.02 (0.00-0.03) X10*3/uL Absolute Neuts (auto) 3.8 3.2 (2.0-8.3) x10*3/uL Absolute Nucleated RBC 0.000 0.000 (0.0-0.012) X10*3/uL Nucleated RBC % (auto) 0.0 0.0 (0.0-0.2) /100WBC PT 12.6 H (10.9-12.4) SEC INR 1.1 (0.9-1.1) Sodium 141 140 (135-145) mmol/L Potassium 4.2 4.2 (3.3-5.1) mmol/L Chloride 106 106 (96-108) mmol/L Carbon Dioxide 24 23 (22-29) mmol/L Anion Gap 15 15 (12-20) BUN 22 H 24 H (9-16) mg/dL Creatinine 1.04 0.86 (0.5-1.4) mg/dL Estim Creat Clear Calc 101.3 122.6 Estimated GFR > 60 > 60 Random Glucose 93 85 (60-115) mg/dL Calcium 9.5 9.1 (8.4-10.2) mg/dL Magnesium 1.9 (1.6-2.6) mg/dL Total Bilirubin 0.7 0.8 (0.0-1.0) mg/dL AST 34 32 (5-37) U/L ALT 34 32 (0-40) U/L Alkaline Phosphatase 63 59 (39-117) U/L Total Protein 8.3 H 8.1 H (6.5-8.0) g/dL Albumin 4.9 4.7 (3.5-5.0) g/dL Lipase 18 (8-78) U/L Urine Color Dark Yellow Urine Appearance Clear Urine pH 5.5 (5.0-9.0) Ur Specific [place] >= 1.030 H (1.005-1.025) Urine Protein 30 (1+) H (Neg-Trace) mg/dL Urine Glucose (UA) Negative (Negative) mg/dL Urine Ketones 40 (Negative) mg/dL Urine Blood Negative (Negative) Urine Nitrite Negative (Negative) Ur Leukocyte Esterase Negative (Negative) Urine RBC 0-2 (0-2) /HPF Urine WBC 0-5 (0-5) /HPF Ur Squamous Epith Cells 0-2 (0-2) /HPF Urine Bacteria None Seen (None Seen) Hyaline Casts 3-5 (0-2) /LPF Stool Occult Blood (NEGATIVE) Salicylates (15-30) mg/dL Acetaminophen (<30) mcg/mL Ethyl Alcohol < 10 mg/dL Influenza Type A (PCR) (Negative) Influenza Type B (PCR) (Negative) RSV RNA Qual (PCR) (Negative) SARS-CoV-2 RNA (RT-PCR) (Negative) 06/25/24 06/25/24 06/25/24 Range/Units 11:54 14:05 14:58 WBC 5.3 (4.8-10.8) X10*3/uL RBC 4.72 (4.60-5.80) X10*6/uL Hgb 13.9 L (14.0-18.0) g/dl Hct 40.7 L (42.0-52.0) % MCV 86.2 (80.0-98.0) fL MCH 29.4 (27.0-33.0) pg MCHC 34.2 (31.0-36.0) g/dl RDW 12.5 (11.0-16.0) % Plt Count 137 L (160-400) X10*3/uL MPV 10.3 (9.4-12.4) fL Immature Gran % (Auto) 0.4 (0.0-0.4) % Neut % (Auto) 39.4 L (45-73) % Lymph % (Auto) 43.5 H (20-40) % [place] % (Auto) 16.3 H (2-11) % Eos % (Auto) 0.0 (0-4) % Baso % (Auto) 0.4 (0-2) % Lymph # (Auto) 2.3 (1.2-4.9) X10*3/uL [place] # (Auto) 0.9 (0.1-1.2) X10*3/uL Eos # (Auto) 0.0 (0.0-0.4) X10*3/uL Baso # (Auto) 0.0 (0.0-0.2) X10*3/uL Abs Immat Gran (auto) 0.02 (0.00-0.03) X10*3/uL Absolute Neuts (auto) 2.1 (2.0-8.3) x10*3/uL Absolute Nucleated RBC 0.000 (0.0-0.012) X10*3/uL Nucleated RBC % (auto) 0.0 (0.0-0.2) /100WBC PT (10.9-12.4) SEC INR (0.9-1.1) Sodium (135-145) mmol/L Potassium (3.3-5.1) mmol/L Chloride (96-108) mmol/L Carbon Dioxide (22-29) mmol/L Anion Gap (12-20) BUN (9-16) mg/dL Creatinine (0.5-1.4) mg/dL Estim Creat Clear Calc Estimated GFR Random Glucose (60-115) mg/dL Calcium (8.4-10.2) mg/dL Magnesium (1.6-2.6) mg/dL Total Bilirubin (0.0-1.0) mg/dL AST (5-37) U/L ALT (0-40) U/L Alkaline Phosphatase (39-117) U/L Total Protein (6.5-8.0) g/dL Albumin (3.5-5.0) g/dL Lipase (8-78) U/L Urine Color Urine Appearance Urine pH (5.0-9.0) Ur Specific [place] (1.005-1.025) Urine Protein (Neg-Trace) mg/dL Urine Glucose (UA) (Negative) mg/dL Urine Ketones (Negative) mg/dL Urine Blood (Negative) Urine Nitrite (Negative) Ur Leukocyte Esterase (Negative) Urine RBC (0-2) /HPF Urine WBC (0-5) /HPF Ur Squamous Epith Cells (0-2) /HPF Urine Bacteria (None Seen) Hyaline Casts (0-2) /LPF Stool Occult Blood NEGATIVE (NEGATIVE) Salicylates (15-30) mg/dL Acetaminophen (<30) mcg/mL Ethyl Alcohol mg/dL Influenza Type A (PCR) POSITIVE A (Negative) Influenza Type B (PCR) NEGATIVE (Negative) RSV RNA Qual (PCR) NEGATIVE (Negative) SARS-CoV-2 RNA (RT-PCR) NEGATIVE (Negative) 06/25/24 Range/Units 15:21 WBC (4.8-10.8) X10*3/uL RBC (4.60-5.80) X10*6/uL Hgb 14.9 (14.0-18.0) g/dl Hct 43.9 (42.0-52.0) % MCV (80.0-98.0) fL MCH (27.0-33.0) pg MCHC (31.0-36.0) g/dl RDW (11.0-16.0) % Plt Count (160-400) X10*3/uL MPV (9.4-12.4) fL Immature Gran % (Auto) (0.0-0.4) % Neut % (Auto) (45-73) % Lymph % (Auto) (20-40) % [place] % (Auto) (2-11) % Eos % (Auto) (0-4) % Baso % (Auto) (0-2) % Lymph # (Auto) (1.2-4.9) X10*3/uL [place] # (Auto) (0.1-1.2) X10*3/uL Eos # (Auto) (0.0-0.4) X10*3/uL Baso # (Auto) (0.0-0.2) X10*3/uL Abs Immat Gran (auto) (0.00-0.03) X10*3/uL Absolute Neuts (auto) (2.0-8.3) x10*3/uL Absolute Nucleated RBC (0.0-0.012) X10*3/uL Nucleated RBC % (auto) (0.0-0.2) /100WBC PT (10.9-12.4) SEC INR (0.9-1.1) Sodium (135-145) mmol/L Potassium (3.3-5.1) mmol/L Chloride (96-108) mmol/L Carbon Dioxide (22-29) mmol/L Anion Gap (12-20) BUN (9-16) mg/dL Creatinine (0.5-1.4) mg/dL Estim Creat Clear Calc Estimated GFR Random Glucose (60-115) mg/dL Calcium (8.4-10.2) mg/dL Magnesium (1.6-2.6) mg/dL Total Bilirubin (0.0-1.0) mg/dL AST (5-37) U/L ALT (0-40) U/L Alkaline Phosphatase (39-117) U/L Total Protein (6.5-8.0) g/dL Albumin (3.5-5.0) g/dL Lipase (8-78) U/L Urine Color Urine Appearance Urine pH (5.0-9.0) Ur Specific [place] (1.005-1.025) Urine Protein (Neg-Trace) mg/dL Urine Glucose (UA) (Negative) mg/dL Urine Ketones (Negative) mg/dL Urine Blood (Negative) Urine Nitrite (Negative) Ur Leukocyte Esterase (Negative) Urine RBC (0-2) /HPF Urine WBC (0-5) /HPF Ur Squamous Epith Cells (0-2) /HPF Urine Bacteria (None Seen) Hyaline Casts (0-2) /LPF Stool Occult Blood (NEGATIVE) Salicylates < 5.0 L (15-30) mg/dL Acetaminophen < 3 (<30) mcg/mL Ethyl Alcohol mg/dL Influenza Type A (PCR) (Negative) Influenza Type B (PCR) (Negative) RSV RNA Qual (PCR) (Negative) SARS-CoV-2 RNA (RT-PCR) (Negative) Independent Interpretation I performed an independent interpretation of an: EKG Interpretation: EKG normal sinus rhythm at a ventricular rate of 85 beats per minute, no QTC prolongation. No STEMI. Radiology Impression Discussion of test interpretation with radiology: I have reviewed the radiologist's reading. External Record Review External record reviewed: Inpatient record, Office record, Outpatient record, Prior outpatient labs, Prior outpatient radiology, Primary care record and Outside ED record Discharge Plan Discharge Clinical Impression: Acute GI bleeding Patient Disposition: Admitted As Inpatient Print Language: Kiswahili
[2024-06-24 21:20] LABS: MANUAL DIFF FLAG NO
[2024-06-24 21:21] LABS: Basophils Percent Auto 0.3 % (0-2); Eosinophils Absolute Auto 0.2 X10*3/uL (0.0-0.4); Eosinophils Percent Auto 2.6 % (0-4); Hematocrit 47.6 % (42.0-52.0); Hemoglobin 16.3 g/dl (14.0-18.0); Imm Gran Abs Auto 0.04 X10*3/uL (0.00-0.03); Imm Gran Pct Auto 0.7 % (0.0-0.4); Lymphocytes Percent Auto 15.7 % (20-40); Mean Corpuscular HGB Conc 34.2 g/dl (31.0-36.0); Mean Corpuscular Hemoglobin 29.5 pg (27.0-33.0); Mean Corpuscular Volume 86.2 fL (80.0-98.0); Mean Platelet Volume 10.3 fL (9.4-12.4); Monocytes Absolute Auto 1.1 X10*3/uL (0.1-1.2); Monocytes Percent Auto 17.7 % (2-11); Neutrophils Absolute Auto 3.8 x10*3/uL (2.0-8.3); Platelet Count 165 X10*3/uL (160-400); Red Blood Count 5.52 X10*6/uL (4.60-5.80); Red Cell Distribution Width 12.5 % (11.0-16.0); White Blood Count 6.1 X10*3/uL (4.8-10.8)
[2024-06-24 21:31] LABS: INTERNATIONAL NORM RATIO 1.1 (0.9-1.1); Prothrombin Time 12.6 SEC (10.9-12.4)
[2024-06-24 21:41] LABS: Alanine Aminotransferase 34 U/L (0-40); Albumin Level 4.9 g/dL (3.5-5.0); Alkaline Phosphatase 63 U/L (39-117); Anion Gap 15 (12-20); Aspartate Amino Transferase 34 U/L (5-37); Bilirubin Total 0.7 mg/dL (0.0-1.0); Blood Urea Nitrogen 22 mg/dL (9-16); Calcium 9.5 mg/dL (8.4-10.2); Carbon Dioxide 24 mmol/L (22-29); Chloride 106 mmol/L (96-108); Creatinine Clr Calc Pharmacy 101.3; Estimated Glomerular Filt Rate > 60; Glucose Random 93 mg/dL (60-115); Lipase 18 U/L (8-78); Potassium 4.2 mmol/L (3.3-5.1); Sodium 141 mmol/L (135-145); Total Protein 8.3 g/dL (6.5-8.0)
[2024-06-25 04:21] VITALS: BP 109/77; PULSE 76; RESP 20; TEMP 37.3; O2SAT 98
[2024-06-25] MEDS: Ondansetron ODT 4 MG TAB.RAPDIS TRANSLINGU (04:25)
[2024-06-25 04:32] LABS: Appearance Urine Clear; Color Urine Dark Yellow; Glucose Urine UA Negative (Negative); Leukocyte Esterase Urine Negative (Negative); Nitrite Urine Negative (Negative); PH 5.5 (5.0-9.0); Specific Gravity - Urine >= 1.030 (1.005-1.025); UMIC TRIGGER UACC YES; Urine Blood Negative (Negative); Urine Ketones 40 mg/dL (Negative); Urine Protein 30 (1+) mg/dL (Neg-Trace)
[2024-06-25 04:35] LABS: Bacteria Urine None Seen (None Seen); RBC Urine 0-2 /HPF (0-2); Squamous Epithelial Cell Urine 0-2 /HPF (0-2); WBC Urine 0-5 /HPF (0-5)
[2024-06-25 09:01] VITALS: BP 127/71; PULSE 76; RESP 17; O2SAT 98
[2024-06-25 09:36] LABS: MANUAL DIFF FLAG NO
[2024-06-25 09:38] LABS: Basophils Percent Auto 0.6 % (0-2); Hematocrit 46.8 % (42.0-52.0); Hemoglobin 16.1 g/dl (14.0-18.0); Imm Gran Abs Auto 0.02 X10*3/uL (0.00-0.03); Imm Gran Pct Auto 0.3 % (0.0-0.4); Lymphocytes Absolute Auto 1.8 X10*3/uL (1.2-4.9); Lymphocytes Percent Auto 28.2 % (20-40); Mean Corpuscular HGB Conc 34.4 g/dl (31.0-36.0); Mean Corpuscular Hemoglobin 29.5 pg (27.0-33.0); Mean Corpuscular Volume 85.9 fL (80.0-98.0); Mean Platelet Volume 10.3 fL (9.4-12.4); Monocytes Absolute Auto 1.2 X10*3/uL (0.1-1.2); Monocytes Percent Auto 19.1 % (2-11); Neutrophils Absolute Auto 3.2 x10*3/uL (2.0-8.3); Neutrophils Percent Auto 51.8 % (45-73); Platelet Count 158 X10*3/uL (160-400); Red Blood Count 5.45 X10*6/uL (4.60-5.80); Red Cell Distribution Width 12.7 % (11.0-16.0); White Blood Count 6.3 X10*3/uL (4.8-10.8)
[2024-06-25 09:51] LABS: Alanine Aminotransferase 32 U/L (0-40); Albumin Level 4.7 g/dL (3.5-5.0); Alkaline Phosphatase 59 U/L (39-117); Anion Gap 15 (12-20); Aspartate Amino Transferase 32 U/L (5-37); Bilirubin Total 0.8 mg/dL (0.0-1.0); Blood Urea Nitrogen 24 mg/dL (9-16); Calcium 9.1 mg/dL (8.4-10.2); Carbon Dioxide 23 mmol/L (22-29); Chloride 106 mmol/L (96-108); Creatinine Clr Calc Pharmacy 122.6; Estimated Glomerular Filt Rate > 60; Glucose Random 85 mg/dL (60-115); Magnesium 1.9 mg/dL (1.6-2.6); Potassium 4.2 mmol/L (3.3-5.1); Sodium 140 mmol/L (135-145); Total Protein 8.1 g/dL (6.5-8.0)
[2024-06-25] MEDS: Pantoprazole Sodium 40 MG/10 ML VIAL 80 MG IVPUSH (09:57)
[2024-06-25] MEDS: Lactated Ringers 1,000 ML 999 ML IV ×2 (09:58→12:24)
[2024-06-25] MEDS: Acetaminophen 1,000 MG/100 ML PIGGYBACK 400 MG IV (09:58)
[2024-06-25] MEDS: Metoclopramide HCl 10 MG/2 ML VIAL IVPUSH (10:18)
[2024-06-25] MEDS: diphenhydrAMINE HCL 50 MG/ML VIAL 25 MG IVPUSH (10:18)
[2024-06-25] MEDS: iohexoL 350 MG/ML 100 ML INFUS..BTL IV (11:04)
[2024-06-25 12:02] LABS: OBS Int Ctl Valid YES; OBS1 NEGATIVE (NEGATIVE)
[2024-06-25 12:19] VITALS: BP 121/71; PULSE 78; RESP 17; TEMP 36.4; O2SAT 99
--- NOTE | 2024-06-25 13:44 | PC.NURSE ---
PT IN NAD AT THIS TIME. NO EPISODES OF VOM, DIARRHEA. NAUSEA RESOLVED WITH RX. AWAITING REPEAT CBC, PT AWARE OF PLAN FOR CARE.
[2024-06-25 14:12] LABS: MANUAL DIFF FLAG NO
[2024-06-25 14:17] LABS: Basophils Percent Auto 0.4 % (0-2); Hematocrit 40.7 % (42.0-52.0); Hemoglobin 13.9 g/dl (14.0-18.0); Imm Gran Abs Auto 0.02 X10*3/uL (0.00-0.03); Imm Gran Pct Auto 0.4 % (0.0-0.4); Lymphocytes Absolute Auto 2.3 X10*3/uL (1.2-4.9); Lymphocytes Percent Auto 43.5 % (20-40); Mean Corpuscular HGB Conc 34.2 g/dl (31.0-36.0); Mean Corpuscular Hemoglobin 29.4 pg (27.0-33.0); Mean Corpuscular Volume 86.2 fL (80.0-98.0); Mean Platelet Volume 10.3 fL (9.4-12.4); Monocytes Absolute Auto 0.9 X10*3/uL (0.1-1.2); Monocytes Percent Auto 16.3 % (2-11); Neutrophils Absolute Auto 2.1 x10*3/uL (2.0-8.3); Neutrophils Percent Auto 39.4 % (45-73); Platelet Count 137 X10*3/uL (160-400); Red Blood Count 4.72 X10*6/uL (4.60-5.80); Red Cell Distribution Width 12.5 % (11.0-16.0); White Blood Count 5.3 X10*3/uL (4.8-10.8)
--- NOTE | 2024-06-25 15:17 | P.CNGI_ITS ---
History of Present Illness Data of Consult Service Date: 06/25/24 Requesting physician: Pratik Crandall Primary Care Provider: Janak Graham DO, MD HPI Reason for consult: GI bleeding 28 YM with asthma seen at [facility] on 06/25/24 with cough, congestion , subjective fevers and chills, body aches, abdominal pain, nausea, vomiting and diarrhea. Pt reports [place]ibodeaux started having cough and congestion 4 days ago (on 06/21) followed by lower abdominal pain. On 06/23 he noted 3-4 episodes of coffee-ground emesis and dark stool. He denies passage of bright red blood. PT admitted to taking Ibuprofen in addition to cold/flu medications and denies any Pepto-Bismol use. Pt admits to Vaping and taking Marijuana occasionally and drinks ETOH rarely. Patient reports that he does take ibuprofen 200 mg for the past several years for back pain and dental problems. 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 Had some dry cough. Flu-like symptoms at least since the Saturday. He said he went to the urgent care yesterday and was diagnosed with flu Pt admits to snoring due to a broken nose and denies sleep apnea Pt has asthma and denies major cardiac or pulmonary problems. Pt denies known family history of peptic ulcer disease, colon polyps or colon cancer. 06/25/[address] SCAN SHOWED: 1. Findings consistent with gastritis with wall thickening and mucosal hyperenhancement. Possible subtle focus of enhancement on the delayed acquisition within the posterior gastric body. No pooling. There is also some a linear focus of hyperenhancement of the posterior duodenal bulb without pooling present. Findings are suspicious for duodenal peptic ulcer/ bleeding, but are subtle findings and not definitive. Correlation with EGD is recommended. 2. No evidence of active bleeding in the small bowel, duodenum, or colon. No inflammation or dilatation seen. 3. Small type I hiatus hernia. 4. 2 mm nonobstructing right renal calculus. Review of Systems 2 Review of Systems: as above. Yes all other systems are reviewed and are negative PMFSH Past Medical History Medical History Asthma Social History Social History Smoked in Last 30 Days: Yes Advance Directives: No Advance Directives Information Provided: Yes Meds Allergies Allergy/AdvReac Type Severity Reaction Status Date / Time No Known Allergies Allergy Verified 06/24/24 20:01 [No Known Allergies*] Active Medications: Current Medications Acetaminophen (Acetaminophen 325 Mg Tablet) 650 mg PO Q6H PRN PRN Reason: Pain, Mild 1-3,fever,headache Calcium Carbonate (Calcium Carbonate 750 Mg Tab.Chew) 750 mg PO Q4H PRN PRN Reason: Heartburn Sodium Chloride (Ns) 1,000 mls @ 100 mls/hr IVCONT .Q10H [facility] Magnesium Hydroxide (Milk Of Magnesia 30 Ml Oral.Susp) 30 ml PO DAILY PRN PRN Reason: Constipation Melatonin (Melatonin 3 Mg Tablet) 6 mg PO BEDTIME PRN PRN Reason: Insomnia Ondansetron HCl (Ondansetron Hcl 4 Mg/2 Ml Vial) 4 mg IVPUSH Q6H [facility] Pantoprazole Sodium (Pantoprazole Sodium 40 Mg/10 Ml Vial) 40 mg IVPUSH BID@0630,1630 [facility] Sodium Chloride (0.9 % Sodium Chloride Flush 3 Ml Syringe) 3 ml IVFLUSH QSHIFT [facility] Home Medications ?Medication ?Instructions ?Recorded ?Confirmed ?Last Taken ?Type No Known Home Meds 06/25/24 06/25/24 Unknown History Physical Exam 2 Vital Signs: Vital Signs: Last Vital Signs Temp 97.5 F 06/25/24 12:19 Pulse 78 06/25/24 12:19 Resp 17 06/25/24 12:19 BP 121/71 06/25/24 12:19 Pulse Ox 99 06/25/24 12:19 O2 Del Method Room Air 06/25/24 12:19 BMI result Body Mass Index 25.8 Const: General: no acute distress Nutritional Appearance: average body habitus Orientation/consciousness: patient oriented x3 Limitations: no limitations HEENT: Head: Yes normal to inspection Ears: hearing grossly normal bilaterally Eyes: Sclerae: sclerae normal Pupils: Equal, round and reactive pupils present Neck: Neck: Yes normal visual inspection Chest: Chest palpation & inspection: normal inspection of the chest Resp: Effort & Inspection: normal respiratory effort Auscultation: clear to auscultation bilaterally Cardio: Palpation: normal PMI Rate: regular rate Rhythm: regular rhythm Heart sounds: S1 normal heart sound present, S2 normal heart sound present and no murmurs GI: Palpation (GI): Soft to palpation, Tenderness to palpation present (GI) (Moderate epigastric tenderness without rebound) and No hepatosplenomegaly present Auscultation: normal bowel sounds Rectal Exam - Male: Yes deferred Skin: General skin exam: no rashes or lesions noted Neuro: General: patient oriented x3, gait normal and moves all extremities Cranial nerves: Yes Equal, round and reactive pupils present Psych: Appearance: grossly normal Mental Status: mental status grossly normal Results Labs 06/25/24 15:21 06/25/24 09:28 Labs: Short CBC 06/24/24 06/25/24 06/25/24 Range/Units 21:16 09:28 14:05 WBC 6.1 6.3 5.3 (4.8-10.8) X10*3/uL Hgb 16.3 16.1 13.9 L (14.0-18.0) g/dl Hct 47.6 46.8 40.7 L (42.0-52.0) % Plt Count 165 D 158 L 137 L (160-400) X10*3/uL BMP 06/24/24 06/25/24 21:16 09:28 Sodium 141 140 Potassium 4.2 4.2 Chloride 106 106 Carbon Dioxide 24 23 BUN 22 H 24 H Creatinine 1.04 0.86 Calcium 9.5 9.1 Liver Function 06/24/24 06/25/24 Range/Units 21:16 09:28 Total Bilirubin 0.7 0.8 (0.0-1.0) mg/dL AST 34 32 (5-37) U/L ALT 34 32 (0-40) U/L Alkaline Phosphatase 63 59 (39-117) U/L Albumin 4.9 4.7 (3.5-5.0) g/dL Urine 06/25/24 Range/Units 04:26 Urine Color Dark Yellow Urine Appearance Clear Urine pH 5.5 (5.0-9.0) Ur Specific [place] >= 1.030 H (1.005-1.025) Urine Protein 30 (1+) H (Neg-Trace) mg/dL Urine Glucose (UA) Negative (Negative) mg/dL Assessment and Plan (1) Acute GI bleeding: Status: Acute Plan 28 YM with asthma seen at [facility] on 06/25/24 with cough, congestion , subjective fevers and chills, body aches, abdominal pain, nausea, vomiting and diarrhea. Pt reports he started having cough and congestion 4 days ago (on 06/21) followed by lower abdominal pain. On 06/23 he noted 3-4 episodes of coffee-ground emesis and dark stool. He denies passage of bright red blood. PT admitted to taking Ibuprofen in addition to cold/flu medications and denies any Pepto-Bismol use Labs showed H & H of 16.3 & 47.6 last night and declined to 13.9 and 40.7 after IV hydration. UGI bleeding is likely from PUD related to NSAID use, erosive esophagitis, gastric Dieulafoy's or AVM RECOMMENDATIONS: 1. Agree with IV PPI and antiemetics 2. Follow CBC every 6 to 8 hrs x 24 hrs and then once a day if stable 3. Pt advised further evaluation with an upper endoscopy. EGD procedure and potential complications including bleeding, perforation, reaction to anesthetics and aspiration pneumonia were reviewed with the patient Procedures Date of Service Date of Service: 06/25/24
[2024-06-25 15:29] LABS: Hematocrit 43.9 % (42.0-52.0); Hemoglobin 14.9 g/dl (14.0-18.0)
[2024-06-25 15:43] LABS: Acetaminophen LAB < 3 mcg/mL (<30); Salicylate < 5.0 mg/dL (15-30)
[2024-06-25 15:50] LABS: Influenza A PCR POSITIVE (Negative); Influenza B PCR NEGATIVE (Negative); Resp Syncy Virus RNA Qual PCR NEGATIVE (Negative); SARS COV2 PCR INHOUSE NEGATIVE (Negative)
[2024-06-25] MEDS: ondansetron HCL 4 MG/2 ML VIAL IVPUSH ×2 (16:01→21:27)
[2024-06-25] MEDS: Pantoprazole Sodium 40 MG/10 ML VIAL IVPUSH (16:01)
[2024-06-25] MEDS: 0.9 % Sodium Chloride 1,000 ML 100 ML IVCONT (16:03)
[2024-06-25 16:17] LABS: Ethanol < 10 mg/dL
[2024-06-25 16:34] VITALS: BP 135/69; PULSE 68; RESP 17; TEMP 36.8; O2SAT 98
--- NOTE | 2024-06-25 16:34 | PM.IMHP ---
History of Present Illness Date of Service: 06/25/24 Attending physician on admission: Pratik Crandall Chief Complaint: abd pain 28 y/o M with cough, congestion , abdominal pain, nausea, vomiting and diarrhea. he is coughing congestion on Saturday, 4 days ago, and then over the last several days he has developed lower abdominal pain,on Saturday he noticed coffee-ground appearing emesis, and dark stool. in addition cold/flu medication,also took as per ed handful of ibuprofen He denies any Pepto-Bismol use. He reports subjective fevers and chills. Also endorsing body aches. He does report lower abdominal pain. Denies history of similar symptoms in the past. He does not regularly drink alcohol, also uses occasional marijuana. Patient reports that he does take ibuprofen''he said handful but unable to tell how long back Patient denies any chest pain or shortness of breath or dizziness or fever or chills or weakness numbness. Had some dry cough. Flu-like symptoms at least since the Saturday. He said he went to the urgent care yesterday and was diagnosed with flu. Lab imaging CT abdomen reviewed: H&H 13.9, his baseline is between 15-16 BUN 24, creatinine 0.86, LFT normal CT abdomen:Findings consistent with gastritis with wall thickening and mucosal hyperenhancement. Possible subtle focus of enhancement on the delayed acquisition within the posterior gastric body. No pooling. There is also some a linear focus of hyperenhancement of the posterior duodenal bulb without pooling present. Findings are suspicious for duodenal peptic ulcer/ bleeding, but are subtle findings and not definitive. Correlation with EGD is recommended. EKG: Normal sinus rhythm with sinus arrhythmia ED checked Tylenol and salicylate level seems normal, also ED checked with poison control no acute intervention-as is levels are normal. Patient has possible GI bleed. Review of Systems Review of Systems: as above. Yes all other systems are reviewed and are negative [facility] Medical History Asthma Social History Smoked in Last 30 Days: Yes Advance Directives: No Advance Directives Information Provided: Yes Meds Allergies Allergy/AdvReac Type Severity Reaction Status Date / Time No Known Allergies Allergy Verified 06/24/24 20:01 [No Known Allergies*] Active Medications: Current Medications Acetaminophen (Acetaminophen 325 Mg Tablet) 650 mg PO Q6H PRN PRN Reason: Pain, Mild 1-3,fever,headache Calcium Carbonate (Calcium Carbonate 750 Mg Tab.Chew) 750 mg PO Q4H PRN PRN Reason: Heartburn Sodium Chloride (Ns) 1,000 mls @ 100 mls/hr IVCONT .Q10H [facility] Last Admin: 06/25/24 16:03 Dose: 100 mls/hr Magnesium Hydroxide (Milk Of Magnesia 30 Ml Oral.Susp) 30 ml PO DAILY PRN PRN Reason: Constipation Melatonin (Melatonin 3 Mg Tablet) 6 mg PO BEDTIME PRN PRN Reason: Insomnia Ondansetron HCl (Ondansetron Hcl 4 Mg/2 Ml Vial) 4 mg IVPUSH Q6H [facility] Last Admin: 06/25/24 16:01 Dose: 4 mg Pantoprazole Sodium (Pantoprazole Sodium 40 Mg/10 Ml Vial) 40 mg IVPUSH BID@0630,1630 [facility] Last Admin: 06/25/24 16:01 Dose: 40 mg Sodium Chloride (0.9 % Sodium Chloride Flush 3 Ml Syringe) 3 ml IVFLUSH QSHIFT [facility] Last Admin: 06/25/24 16:05 Dose: Not Given Home Medications ?Medication ?Instructions ?Recorded ?Confirmed ?Last Taken ?Type No Known Home Meds 06/25/24 06/25/24 Unknown History Physical Exam Vital Signs and Narrative: Vital Signs: Last Vital Signs Temp 97.5 F 06/25/24 12:19 Pulse 78 06/25/24 12:19 Resp 17 06/25/24 12:19 BP 121/71 06/25/24 12:19 Pulse Ox 99 06/25/24 12:19 O2 Del Method Room Air 06/25/24 12:19 BMI result Body Mass Index 25.8 Appearance: Alert.? Oriented X3.? cvs: [id number], [id number] , no murmur res: clear to auscultation ,no rhonchii or wheezing abd: no rebound or guarding , upper abd pain, bs present. ext pulses present , no cyanosis. neuro: axo3 , nonfocal. Results Labs 06/25/24 15:21 06/25/24 09:28 Labs: Laboratory Results - last 24 hr 06/24/24 06/25/24 06/25/24 21:16 04:26 09:28 MCV 86.2 85.9 MCH 29.5 29.5 MCHC 34.2 34.4 RDW 12.5 12.7 Plt Count 165 D 158 L MPV 10.3 10.3 Immature Gran % (Auto) 0.7 H 0.3 Neut % (Auto) 63.0 51.8 Lymph % (Auto) 15.7 L 28.2 [place] % (Auto) 17.7 H 19.1 H Eos % (Auto) 2.6 0.0 Baso % (Auto) 0.3 0.6 Lymph # (Auto) 1.0 L 1.8 [place] # (Auto) 1.1 1.2 Eos # (Auto) 0.2 0.0 Baso # (Auto) 0.0 0.0 Abs Immat Gran (auto) 0.04 H 0.02 Absolute Neuts (auto) 3.8 3.2 Absolute Nucleated RBC 0.000 0.000 Nucleated RBC % (auto) 0.0 0.0 PT 12.6 H INR 1.1 Anion Gap 15 15 Estim Creat Clear Calc 101.3 122.6 Estimated GFR > 60 > 60 Random Glucose 93 85 Calcium 9.5 9.1 Magnesium 1.9 Total Bilirubin 0.7 0.8 AST 34 32 ALT 34 32 Alkaline Phosphatase 63 59 Total Protein 8.3 H 8.1 H Albumin 4.9 4.7 Lipase 18 Urine Color Dark Yellow Urine Appearance Clear Urine pH 5.5 Ur Specific [place] >= 1.030 H Urine Protein 30 (1+) H Urine Glucose (UA) Negative Urine Ketones 40 Urine Blood Negative Urine Nitrite Negative Ur Leukocyte Esterase Negative Urine RBC 0-2 Urine WBC 0-5 Ur Squamous Epith Cells 0-2 Urine Bacteria None Seen Hyaline Casts 3-5 Stool Occult Blood Salicylates Acetaminophen Ethyl Alcohol < 10 Influenza Type A (PCR) Influenza Type B (PCR) RSV RNA Qual (PCR) SARS-CoV-2 RNA (RT-PCR) 06/25/24 06/25/24 06/25/24 11:54 14:05 14:58 MCV 86.2 MCH 29.4 MCHC 34.2 RDW 12.5 Plt Count 137 L MPV 10.3 Immature Gran % (Auto) 0.4 Neut % (Auto) 39.4 L Lymph % (Auto) 43.5 H [place] % (Auto) 16.3 H Eos % (Auto) 0.0 Baso % (Auto) 0.4 Lymph # (Auto) 2.3 [place] # (Auto) 0.9 Eos # (Auto) 0.0 Baso # (Auto) 0.0 Abs Immat Gran (auto) 0.02 Absolute Neuts (auto) 2.1 Absolute Nucleated RBC 0.000 Nucleated RBC % (auto) 0.0 PT INR Anion Gap Estim Creat Clear Calc Estimated GFR Random Glucose Calcium Magnesium Total Bilirubin AST ALT Alkaline Phosphatase Total Protein Albumin Lipase Urine Color Urine Appearance Urine pH Ur Specific [place] Urine Protein Urine Glucose (UA) Urine Ketones Urine Blood Urine Nitrite Ur Leukocyte Esterase Urine RBC Urine WBC Ur Squamous Epith Cells Urine Bacteria Hyaline Casts Stool Occult Blood NEGATIVE Salicylates Acetaminophen Ethyl Alcohol Influenza Type A (PCR) POSITIVE A Influenza Type B (PCR) NEGATIVE RSV RNA Qual (PCR) NEGATIVE SARS-CoV-2 RNA (RT-PCR) NEGATIVE 06/25/24 15:21 MCV MCH MCHC RDW Plt Count MPV Immature Gran % (Auto) Neut % (Auto) Lymph % (Auto) [place] % (Auto) Eos % (Auto) Baso % (Auto) Lymph # (Auto) [place] # (Auto) Eos # (Auto) Baso # (Auto) Abs Immat Gran (auto) Absolute Neuts (auto) Absolute Nucleated RBC Nucleated RBC % (auto) PT INR Anion Gap Estim Creat Clear Calc Estimated GFR Random Glucose Calcium Magnesium Total Bilirubin AST ALT Alkaline Phosphatase Total Protein Albumin Lipase Urine Color Urine Appearance Urine pH Ur Specific [place] Urine Protein Urine Glucose (UA) Urine Ketones Urine Blood Urine Nitrite Ur Leukocyte Esterase Urine RBC Urine WBC Ur Squamous Epith Cells Urine Bacteria Hyaline Casts Stool Occult Blood Salicylates < 5.0 L Acetaminophen < 3 Ethyl Alcohol Influenza Type A (PCR) Influenza Type B (PCR) RSV RNA Qual (PCR) SARS-CoV-2 RNA (RT-PCR) Imaging Radiologist's Impressions: Impressions Abdomen/Pelvis CT 06/25/24 10:21 IMPRESSION: 1. Findings consistent with gastritis with wall thickening and mucosal hyperenhancement. Possible subtle focus of enhancement on the delayed acquisition within the posterior gastric body. No pooling. There is also some a linear focus of hyperenhancement of the posterior duodenal bulb without pooling present. Findings are suspicious for duodenal peptic ulcer/ bleeding, but are subtle findings and not definitive. Correlation with EGD is recommended. 2. No evidence of active bleeding in the small bowel, duodenum, or colon. No inflammation or dilatation seen. 3. Small type I hiatus hernia. 4. 2 mm nonobstructing right renal calculus. Electronically signed by: Rajan Castillo MD 06/25/2024 11:25 AM [facility] Assessment and Plan (1) Acute GI bleeding: Status: Acute 28 y/o M with cough, congestion , abdominal pain, nausea, vomiting and diarrhea. he is coughing congestion on Saturday, 4 days ago, and then over the last several days he has developed lower abdominal pain,on Saturday he noticed coffee-ground appearing emesis, and dark stool. 1.Gib upper : ct abd: ?duodenal ulcer bp stable moniter h/h added ppi,ivf, moniter clinically,npo for possible egd . Gi eval 2. influenza -symptoms from 4-5 days not on tamiflu dvt prophylax:mech devices. Above management discussed with the patient detail length he understand and in agreement with the above plan, time spent 70 minute, patient is full code. Quality Stroke Does the patient have a stroke diagnosis?: No VTE Prior VTE?: No VTE Risk Level:: Medical - moderate - high VTE Device Contraindication: N/A - Device Ordered VTE Drug Contraindication: N/A - Med Ordered
--- NOTE | 2024-06-25 17:51 | PHA.MEDREC ---
Addendum entered by Iliana Morley RPh 06/25/24 18:04: reviewed by [facility]. Original Note: Pharmacy Consult ? Medication Reconciliation Pharmacy has completed the medication reconciliation. Patient confirm he is not taking any medications.
[2024-06-25 18:28] VITALS: PULSE 92; RESP 16; TEMP 36.2; O2SAT 99
--- NOTE | 2024-06-25 21:08 | PC.NURSE ---
pt states difficutly breathing, sat 100 room air, lung find cr eric bases. ivf paused at this time.
[2024-06-25 21:11] LABS: Hematocrit 41.6 % (42.0-52.0); Hemoglobin 14.2 g/dl (14.0-18.0)
[2024-06-25 22:00] VITALS: BP 111/75; PULSE 72; RESP 20; TEMP 37.2; O2SAT 98
--- NOTE | 2024-06-25 22:38 | PC.NURSE ---
pt states he is feeling better with breathing, fine cr 2/3 eric. ivf remain off and hospitalist dr. grajeda is aware.
--- NOTE | 2024-06-26 00:16 | PC.NURSE ---
poison controll called and updated on the H&H.
[2024-06-26] MEDS: ondansetron HCL 4 MG/2 ML VIAL IVPUSH ×3 (02:16→15:25)
--- NOTE | 2024-06-26 02:46 | MHC.EDTECH ---
This tech took over care of patient at this time,rounded and introduced self to pt,vitals taken,pt appears comfortable,call antoine in reach
[2024-06-26 02:55] VITALS: BP 123/73; PULSE 66; RESP 26; TEMP 36.8; O2SAT 98
[2024-06-26 05:18] LABS: Alanine Aminotransferase 25 U/L (0-40); Albumin Level 3.9 g/dL (3.5-5.0); Alkaline Phosphatase 47 U/L (39-117); Anion Gap 15 (12-20); Aspartate Amino Transferase 30 U/L (5-37); Bilirubin Total 0.8 mg/dL (0.0-1.0); Blood Urea Nitrogen 19 mg/dL (9-16); Calcium 8.6 mg/dL (8.4-10.2); Carbon Dioxide 21 mmol/L (22-29); Chloride 107 mmol/L (96-108); Creatinine Clr Calc Pharmacy 148.5; Estimated Glomerular Filt Rate > 60; Glucose Random 75 mg/dL (60-115); Potassium 3.4 mmol/L (3.3-5.1); Sodium 140 mmol/L (135-145); Total Protein 6.3 g/dL (6.5-8.0)
[2024-06-26 06:56] VITALS: BP 119/62; PULSE 60; RESP 20; TEMP 36.8; O2SAT 99
[2024-06-26] MEDS: Pantoprazole Sodium 40 MG/10 ML VIAL IVPUSH ×2 (07:38→15:25)
[2024-06-26] MEDS: 0.9 % Sodium Chloride 1,000 ML 100 ML IVCONT (07:38)
[2024-06-26 08:00] VITALS: BP 119/65; PULSE 64; RESP 20; TEMP 37.1; O2SAT 97
--- NOTE | 2024-06-26 08:55 | P.PNIM_ITS ---
Subjective Subjective Date of Service: 06/26/24 Interval History: abd pain-? duodenal ulcer Review of Systems abd pain somewhat improving h/h stable no gross bleeding overnight as per patient Physical Exam 2 Vital Signs: Vital Signs: Last Vital Signs Temp 98.8 F 06/26/24 08:00 Pulse 64 06/26/24 08:00 Resp 20 06/26/24 08:00 BP 119/65 06/26/24 08:00 Pulse Ox 97 06/26/24 08:00 O2 Del Method Room Air 06/26/24 08:00 BMI result Body Mass Index 25.8 Appearance: Alert.? Oriented X3.? cvs: rrr, [id number] , no murmur res: clear to auscultation ,no rhonchii or wheezing abd: no rebound or guarding , upper abd pain, bs present. ext pulses present , no cyanosis. neuro: axo3 , nonfocal Objective Data Active Medications Acetaminophen (Acetaminophen 325 Mg Tablet) 650 mg PO Q6H PRN PRN Reason: Pain, Mild 1-3,fever,headache Calcium Carbonate (Calcium Carbonate 750 Mg Tab.Chew) 750 mg PO Q4H PRN PRN Reason: Heartburn Lactated Ringer's (Lr) 1,000 mls @ 100 mls/hr IVCONT .Q10H [facility] Magnesium Hydroxide (Milk Of Magnesia 30 Ml Oral.Susp) 30 ml PO DAILY PRN PRN Reason: Constipation Melatonin (Melatonin 3 Mg Tablet) 6 mg PO BEDTIME PRN PRN Reason: Insomnia Ondansetron HCl (Ondansetron Hcl 4 Mg/2 Ml Vial) 4 mg IVPUSH Q6H [facility] Last Admin: 06/26/24 02:16 Dose: 4 mg Documented By: SOREN Pantoprazole Sodium (Pantoprazole Sodium 40 Mg/10 Ml Vial) 40 mg IVPUSH BID@0630,1630 [facility] Last Admin: 06/26/24 07:38 Dose: 40 mg Documented By: ISELA Sodium Chloride (0.9 % Sodium Chloride Flush 3 Ml Syringe) 3 ml IVFLUSH QSHIFT [facility] Last Admin: 06/26/24 01:04 Dose: Not Given Documented By: SOREN Non-Admin Reason: Med Not Available Labs 06/26/24 08:53 06/26/24 04:45 Labs: Laboratory Results - last 24 hr 06/25/24 06/25/24 06/25/24 09:28 11:54 14:05 MCV 85.9 86.2 MCH 29.5 29.4 MCHC 34.4 34.2 RDW 12.7 12.5 Plt Count 158 L 137 L MPV 10.3 10.3 Immature Gran % (Auto) 0.3 0.4 Neut % (Auto) 51.8 39.4 L Lymph % (Auto) 28.2 43.5 H [place] % (Auto) 19.1 H 16.3 H Eos % (Auto) 0.0 0.0 Baso % (Auto) 0.6 0.4 Lymph # (Auto) 1.8 2.3 [place] # (Auto) 1.2 0.9 Eos # (Auto) 0.0 0.0 Baso # (Auto) 0.0 0.0 Abs Immat Gran (auto) 0.02 0.02 Absolute Neuts (auto) 3.2 2.1 Absolute Nucleated RBC 0.000 0.000 Nucleated RBC % (auto) 0.0 0.0 Anion Gap 15 Estim Creat Clear Calc 122.6 Estimated GFR > 60 Random Glucose 85 Calcium 9.1 Magnesium 1.9 Total Bilirubin 0.8 AST 32 ALT 32 Alkaline Phosphatase 59 Total Protein 8.1 H Albumin 4.7 Stool Occult Blood NEGATIVE Salicylates Acetaminophen Ethyl Alcohol < 10 Influenza Type A (PCR) Influenza Type B (PCR) RSV RNA Qual (PCR) SARS-CoV-2 RNA (RT-PCR) 06/25/24 06/25/24 06/26/24 14:58 15:21 04:45 MCV MCH MCHC RDW Plt Count MPV Immature Gran % (Auto) Neut % (Auto) Lymph % (Auto) [place] % (Auto) Eos % (Auto) Baso % (Auto) Lymph # (Auto) [place] # (Auto) Eos # (Auto) Baso # (Auto) Abs Immat Gran (auto) Absolute Neuts (auto) Absolute Nucleated RBC Nucleated RBC % (auto) Anion Gap 15 Estim Creat Clear Calc 148.5 Estimated GFR > 60 Random Glucose 75 Calcium 8.6 Magnesium Total Bilirubin 0.8 AST 30 ALT 25 Alkaline Phosphatase 47 Total Protein 6.3 L Albumin 3.9 Stool Occult Blood Salicylates < 5.0 L Acetaminophen < 3 Ethyl Alcohol Influenza Type A (PCR) POSITIVE A Influenza Type B (PCR) NEGATIVE RSV RNA Qual (PCR) NEGATIVE SARS-CoV-2 RNA (RT-PCR) NEGATIVE Assessment and Plan (1) Acute GI bleeding: Status: Acute Plan 28 y/o M with cough, congestion , abdominal pain, nausea, vomiting and diarrhea. he is coughing congestion on Saturday, 4 days ago, and then over the last several days he has developed lower abdominal pain,on Saturday he noticed coffee-ground appearing emesis, and dark stool. 1.Gib upper : ct abd: ?duodenal ulcer bp stable moniter h/h added ppi,ivf, moniter clinically,npo for possible egd . Gi eval -possible egd today 2. influenza -symptoms from 4-5 days not on tamiflu dvt prophylax:mech devices. need for stay: upper Gi bleed -need close h/h monitering ppi, Gi and egd. Quality Stroke Does the patient have a stroke diagnosis?: No VTE Prior VTE?: No VTE Risk Level:: Medical - moderate - high VTE Device Contraindication: N/A - Device Ordered VTE Drug Contraindication: N/A - Med Ordered
[2024-06-26 09:07] LABS: Hematocrit 40.7 % (42.0-52.0); Hemoglobin 13.8 g/dl (14.0-18.0)
[2024-06-26] MEDS: Lactated Ringers 1,000 ML 100 ML IVCONT (09:20)
[2024-06-26 10:44] VITALS: BP 117/54; PULSE 65; RESP 20; TEMP 37.2; O2SAT 98
--- NOTE | 2024-06-26 15:23 | MHC.CM.PN ---
EMR REVIEWED, PT W/GIB, CM MET W/PT WHO REPORTS HE LIVES W/HIS MOTHER, IS FULLY INDEP W/ALL CARE, DENIES USE OF DME/SERVICES, PT REPORTS PCP ON FILE INCORRECT HE HASN'T BEEN SEEN SINCE BEFORE 2019, PT ALSO HAS NO HEALTH INSURANCE AND FS HAS ALREADY MET W/PT TO START [facility] FOR PT. PT EDUCATED ON AND HAS COMPLETED A HCP NAMING HIS MOTHER AURORA WARREN [phone] HIS HCA, NO ALTERNATE CHOSEN, COPY UPLOADED TO [facility] AND PLACED IN CHART.
[2024-06-26] MEDS: guaiFENesin 200 MG/10 ML 10 ML LIQUID PO (15:25)
--- NOTE | 2024-06-26 15:46 | P.DS_ITS ---
DS: Providers Provider Date of Service: 06/26/24 Date of admission: 06/25/24 16:50 Date of discharge: 06/26/24 Primary care physician: Janak Graham DO, MD Consults: 06/25/24 15:11 Consult to Gastroenterology Routine Consulting Provider: [facility] Reason for consultation: GiB Has provider been notified: No Attending physician on discharge: Pratik Crandall Discharging clinician: Pratik Crandall DS: Diagnosis Discharge Diagnosis (1) Acute GI bleeding: Status: Acute DS: Summary Hospital Course Hospital Course: HPI:28 y/o M with cough, congestion , abdominal pain, nausea, vomiting and diarrhea. he is coughing congestion on Saturday, 4 days ago, and then over the last several days he has developed lower abdominal pain,on Saturday he noticed coffee-ground appearing emesis, and dark stool. in addition cold/flu medication,also took as per ed handful of ibuprofen He denies any Pepto-Bismol use. He reports subjective fevers and chills. Also endorsing body aches. He does report lower abdominal pain. Denies history of similar symptoms in the past. He does not regularly drink alcohol, also uses occasional marijuana. Patient reports that he does take ibuprofen''he said handful but unable to tell how long back Patient denies any chest pain or shortness of breath or dizziness or fever or chills or weakness numbness. Had some dry cough. Flu-like symptoms at least since the Saturday. He said he went to the urgent care yesterday and was diagnosed with flu. Lab imaging CT abdomen reviewed: H&H 13.9, his baseline is between 15-16 BUN 24, creatinine 0.86, LFT normal CT abdomen:Findings consistent with gastritis with wall thickening and mucosal hyperenhancement. Possible subtle focus of enhancement on the delayed acquisition within the posterior gastric body. No pooling. There is also some a linear focus of hyperenhancement of the posterior duodenal bulb without pooling present. Findings are suspicious for duodenal peptic ulcer/ bleeding, but are subtle findings and not definitive. Correlation with EGD is recommended. EKG: Normal sinus rhythm with sinus arrhythmia ED checked Tylenol and salicylate level seems normal, also ED checked with poison control no acute intervention-as is levels are normal. Patient has possible GI bleed. Hospital course: 28 y/o M with cough, congestion , abdominal pain, nausea, vomiting and diarrhea. he is coughing congestion on Saturday, 4 days ago, and then over the last several days he has developed lower abdominal pain,on Saturday he noticed coffee-ground appearing emesis, and dark stool-ct abd showed possible pud (suspicious for duodenal peptic ulcer/ bleeding) : patient started on ppi , h/h monitered ,patient also has recent influenza A -added cough meds , not on tamiflu since already has more than 4 days of symptoms. he h/h moniter stable in 13-14 range , no overnight bleeding afterwards. seen By Gi -recommended out patiently EGD since has influenza a. Monitor CBC out patiently in 1 week-discussed with the patient in detail avoid aspirin NSAID and blood thinner and meds which can GI upset. Patient was given omeprazole 40 mg p.o. b.i.d. 1 month supply Patient is to follow-up with PCP in 1 week and monitor CBC as well as further ppi supply out patiently as per PCP and GI. plan: omeprazole 40 mg p.o. b.i.d. 1 month supply. Monitor CBC out patiently in 1 week-discussed with the patient in detail avoid aspirin NSAID and blood thinner and meds which can GI upset. In addition patient was strongly emphasized not to take excessive pain medications including Tylenol . Above management discussed with the patient in detail length he understand in agreement with above plan, time spent 40 min. Time Attestation Total time managing care of this patient today: 40 mintues. Discharge Coordination Time (in mins): 40 min Quality: Safe Use of Opioids Does Pt have an Active Cancer Diagnosis on the Problem List?: No Quality: Stroke Does the patient have a stroke diagnosis?: No Physical Exam Vital Signs: Vital Signs: Last Vital Signs Temp 99.0 F 06/26/24 10:44 Pulse 65 06/26/24 10:44 Resp 20 06/26/24 10:44 BP 117/54 L 06/26/24 10:44 Pulse Ox 98 06/26/24 10:44 O2 Del Method Room Air 06/26/24 10:44 BMI result Body Mass Index 25.8 DS: Data Data Completed and Pending Labs on day of discharge: Laboratory Results - last 24 hr 06/25/24 06/25/24 06/25/24 09:28 14:58 21:04 Hgb 14.2 Hct 41.6 L Sodium Potassium Chloride Carbon Dioxide Anion Gap BUN Creatinine Estim Creat Clear Calc Estimated GFR Random Glucose Calcium Total Bilirubin AST ALT Alkaline Phosphatase Total Protein Albumin Ethyl Alcohol < 10 Influenza Type A (PCR) POSITIVE A Influenza Type B (PCR) NEGATIVE RSV RNA Qual (PCR) NEGATIVE SARS-CoV-2 RNA (RT-PCR) NEGATIVE 06/26/24 06/26/24 04:45 08:53 Hgb 13.8 L Hct 40.7 L Sodium 140 Potassium 3.4 Chloride 107 Carbon Dioxide 21 L Anion Gap 15 BUN 19 H Creatinine 0.71 Estim Creat Clear Calc 148.5 Estimated GFR > 60 Random Glucose 75 Calcium 8.6 Total Bilirubin 0.8 AST 30 ALT 25 Alkaline Phosphatase 47 Total Protein 6.3 L Albumin 3.9 Ethyl Alcohol Influenza Type A (PCR) Influenza Type B (PCR) RSV RNA Qual (PCR) SARS-CoV-2 RNA (RT-PCR) Imaging Chest x-ray: Radiologist's impression: ITS Impressions Abdomen/Pelvis CT 06/25/24 10:21 IMPRESSION: 1. Findings consistent with gastritis with wall thickening and mucosal hyperenhancement. Possible subtle focus of enhancement on the delayed acquisition within the posterior gastric body. No pooling. There is also some a linear focus of hyperenhancement of the posterior duodenal bulb without pooling present. Findings are suspicious for duodenal peptic ulcer/ bleeding, but are subtle findings and not definitive. Correlation with EGD is recommended. 2. No evidence of active bleeding in the small bowel, duodenum, or colon. No inflammation or dilatation seen. 3. Small type I hiatus hernia. 4. 2 mm nonobstructing right renal calculus. Electronically signed by: Rajan Castillo MD 06/25/2024 11:25 AM [facility] Discharge Plan Discharge Anticipated Discharge Date/Time: 06/26/24 15:33 Patient Disposition: Home, Self-Care Discharge Diagnosis: gib -possible pud ( excessive nsaid's use) Referrals: John Villalta MD [Physician] - 1 Week Janak Graham DO, MD [Primary Care Provider] - 1 Week Discharge Medications: New omeprazole 40 mg Capsule,Delayed Release(Dr/Ec) 40 mg PO BID@0630,1630 Qty: 60 0RF guaifenesin 100 mg/5 mL Liquid 100 mg PO Q4H PRN (Reason: Cough) Qty: 200 0RF Discharge Orders: Discharge Order (Routine); Ordered 06/26/24 Ordered By: Pratik Crandall Diet: Advance to usual diet Activity on Discharge: As tolerated Stand Alone Forms: Patient Portal Discharge page Print Language: Moldovan Other Ambulatory Orders: Complete Blood Count no Diff (Routine) Timeframe: 1 Week Facility: [facility] - Location: Laboratory Ordered By: Pratik Crandall Care Plan Goals: 28 y/o M with cough, congestion , abdominal pain, nausea, vomiting and diarrhea. he is coughing congestion on Saturday, 4 days ago, and then over the last several days he has developed lower abdominal pain,on Saturday he noticed coffee-ground appearing emesis, and dark stool-ct abd showed possible pud (suspicious for duodenal peptic ulcer/ bleeding) : patient started on ppi , h/h monitered ,patient also has recent influenza A -added cough meds , not on tamiflu since already has more than 4 days of symptoms. he h/h moniter stable in 13-14 range , no overnight bleeding. seen By Gi -recommended out patiently EGD since has influenza a. Monitor CBC out patiently in 1 week-discussed with the patient in detail avoid aspirin NSAID and blood thinner and meds which can GI upset. Patient was given omeprazole 40 mg p.o. b.i.d. 1 month supply Patient is to follow-up with PCP in 1 week and monitor CBC as well as further ppi supply out patiently as per PCP and GI. Health Concerns: As above. Plan of Treatment: omeprazole 40 mg p.o. b.i.d. 1 month supply. Monitor CBC out patiently in 1 week-discussed with the patient in detail avoid aspirin NSAID and blood thinner and meds which can GI upset. Assessment: As above.
[2024-06-26 15:50] VITALS: BP 131/61; PULSE 62; RESP 20; TEMP 37.3; O2SAT 98
[2024-06-26] MEDS: Omeprazole 40 MG CAPSULE.DR PO (18:44)
== END 2024-06-26 19:10 | disposition home or self-care (01) | DRG 241 ==
LOC: HO.ED 06-25 15:12 → HO.EDOVER 06-25 16:52 → HO.IMC 06-26 05:24
PROVIDERS: Physician Assistant; Physician Assistant Medical; Admitting Provider Internal Medicine; Emergency Provider Emergency Medicine; Visit Provider Internal Medicine
DX: K26.4 Chronic or unspecified duodenal ulcer with hemorrhage (principal); J10.1 Influenza due to other identified influenza virus with other respiratory manifestations; T39.395A Adverse effect of other nonsteroidal anti-inflammatory drugs [NSAID], initial encounter
CPT/HCPCS: 0241U; 36415; 71046; 74178; 80053; 80143; 80179; 80307; 81001; 82272; 83690; 83735; 85014; 85018; 85025; 85610; 93005; 99285; J0131; J1200; J2405; J2470; J2765; J7120; Q9967

== ENCOUNTER → 2024-06-24 20:01 | Outpatient (BNV) | payer SELFPAY | PROVIDERS: Admitting Provider Internal Medicine; Emergency Provider Emergency Medicine; PCP Internal Medicine; Visit Provider Internal Medicine | DX: R10.9 Unspecified abdominal pain (principal) | CPT/HCPCS: 93010 ==

== ENCOUNTER → 2024-06-24 20:02 | Outpatient (BNV) | payer BC, SELFPAY | PROVIDERS: PCP Internal Medicine; Visit Provider Radiology Diagnostic Radiology | DX: R05.9 Cough, unspecified (principal) | CPT/HCPCS: 71046 ==

== ENCOUNTER → 2024-06-25 09:14 | Outpatient (BNV) | payer SELFPAY | PROVIDERS: Emergency Provider Emergency Medicine; PCP Internal Medicine; Visit Provider Radiology Diagnostic Radiology | DX: R10.30 Lower abdominal pain, unspecified (principal) | CPT/HCPCS: 74178 ==

== ENCOUNTER → 2024-06-25 16:50 | Outpatient (BNV) | payer SELFPAY | PROVIDERS: Admitting Provider Internal Medicine; Emergency Provider Emergency Medicine; PCP Internal Medicine; Visit Provider Internal Medicine | DX: K92.2 Gastrointestinal hemorrhage, unspecified (principal) | CPT/HCPCS: 99222 ==

== ENCOUNTER → 2024-06-25 16:50 | Outpatient (BNV) | payer SELFPAY | PROVIDERS: Admitting Provider Internal Medicine; Emergency Provider Emergency Medicine; PCP Internal Medicine; Visit Provider Internal Medicine Gastroenterology | DX: K92.2 Gastrointestinal hemorrhage, unspecified (principal) | CPT/HCPCS: 99222 ==

== ENCOUNTER 2024-07-22 09:38 | Day surgery (SDC) | payer MEDICAID, SELFPAY ==
--- NOTE | 2024-07-21 10:23 | P.CONAN_ITS ---
Documented by User: Zulema Schaffer NP 07/21/24 10:25 HPI - Anesthesia Eval Consult details Narrative: 28yo M for Upper Endoscopy PMFSH Active Problems Active Problems: All Active Problems (Updated 07/04/24 @ 00:01 by Background Effie) Acute GI bleeding (Acute) Past Medical History Medical History (Updated 07/04/24 @ 00:01 by Background Effie) Asthma Surgical History Surgical History (Updated 07/20/24 @ 14:08 by Yesenia Madison RN) Surgical history unknown Social History Social History Household Members: Family Housing: House Do you presently have visiting nurse or other home services: No Patient Tobacco Use Status: Current everyday Tobacco user Tobacco use type: Smokeless Tobacco e-Cigarette/Vaping Use: Currently Using Second Hand Smoke Exposure: No Use of substances other than those prescribed or required for medical reasons: No Have you been hit, kicked, punched, or otherwise hurt by someone within the past year? If so, by whom?: No Are you DNR?: No Advance Directives: No Advance Directives Information Provided: Yes Recently lost weight without trying: No service: No Meds Allergies Allergy/AdvReac Type Severity Reaction Status Date / Time No Known Allergies Allergy Verified 06/24/24 20:01 [No Known Allergies*] Exam Pertinent Lab Results Pertinent Lab Results: Laboratory Tests 06/25/24 06/26/24 06/26/24 14:05 04:45 08:53 WBC 5.3 Hgb 13.8 L Hct 40.7 L Plt Count 137 L Sodium 140 Potassium 3.4 Chloride 107 Carbon Dioxide 21 L BUN 19 H Creatinine 0.71 Narrative Narrative: EKG 06/2024 Vent. Rate : 85 BPM Atrial Rate : 85 BPM P-R Int : 124 ms QRS Dur : 82 ms QT Int : 340 ms P-R-T Axes : 60 49 27 degrees QTcB Int : 404 ms Normal sinus rhythm with sinus arrhythmia Normal ECG No previous ECGs available Assessment and Plan Assessment Anesthesia Assessment: Chart Reviewed Documented by User: Rand Hinson MD 07/22/24 10:37 [facility] Past Medical History Medical History (Updated 07/04/24 @ 00:01 by Alecia Chou) Asthma Family History Family history of problems with anesthesia: No Surgical History Surgical History (Updated 07/20/24 @ 14:08 by Yesenia Madison RN) Surgical history unknown History of Problems with Anesthesia: No Social History Social History Household Members: Family Housing: House Do you presently have visiting nurse or other home services: No Patient Tobacco Use Status: Current everyday Tobacco user Tobacco use type: Smokeless Tobacco e-Cigarette/Vaping Use: Currently Using Second Hand Smoke Exposure: No Use of substances other than those prescribed or required for medical reasons: No Have you been hit, kicked, punched, or otherwise hurt by someone within the past year? If so, by whom?: No Are you DNR?: No Advance Directives: No Advance Directives Information Provided: Yes Recently lost weight without trying: No service: No Meds Allergies Allergy/AdvReac Type Severity Reaction Status Date / Time No Known Allergies Allergy Verified 06/24/24 20:01 [No Known Allergies*] Exam Airway Mallampati Class: II TM Dist: >3cm Neck ROM: Full Heart: rrr Lungs: cta Assessment and Plan Assessment Anesthesia Assessment: Anesthesia Plan Discussed Final Anesthetic Review Family History of Problems with Anesthesia: No History of Problems with Anesthesia: No NPO: Yes ASA Class: II Final Preanesthetic Review: No Changes in Pt Med Stat, Meds/Allgs Chart Reviewed and Consent Obtained/Reviewed Patient Risk: Low Procedure Risk: Intermediate Anesthetic Plan Anesthetic Plan: MAC: Disposition: Standard PACU
[2024-07-22 10:21] VITALS: BP 129/72; PULSE 76; RESP 16; TEMP 36.9; O2SAT 99; BMI 26.3
[2024-07-22] MEDS: Lactated Ringers 1,000 ML 100 ML IVCONT (10:35)
--- NOTE | 2024-07-22 10:36 | MHC.SHP ---
Pre-Procedural Eval Section A - 24 Hr Update-Section A only Date of Service: 07/22/24 Section B - Complete if H&P > 30 days Chief Complaint: Gastrointestinal hemorrhage, unspecified Relevant Family History (Specify if Yes): No Relevant Social History: Other (specify) Present Medications: see Short Stay Collaborative assessment Medical History: Significant History (asthma) History of Previous Operations: No relevant previous surgery Allergies: Allergies Allergy/AdvReac Type Severity Reaction Status Date / Time No Known Allergies Allergy Verified 06/24/24 20:01 [No Known Allergies*] Review of Systems Sugical H&P ROS: Negative: Constitution, Cardiovascular, Respiratory, Neurological, Psychiatric, Hem-Onc, Allergic/Immunologic, Gastrointestinal, Genitourinary, Musculoskeletal, Integumentary, Endocrine and Eyes/Ears/Nose/Throat Exam Surgical H&P Exam: Normal: HEENT, Normal: Heart, Normal: Lungs, Normal: Extremities, Normal: Abdomen, Normal: Skin and Normal: Neurological Plan Diagnosis/Plan: Unchanged I have reviewed the history and physical and performed a pertinent physical examination on my patient. No changes have occurred unless specified. Time Spent With Patient Time: Total time managing care of this patient today ____ minutes.
--- NOTE | 2024-07-22 11:41 | W.PM.OPN ---
Operative Note Operative Note Date of Service: 07/22/24 Narrative: Procedure Description: EGD Indication: gastritis Anesthesia: MAC FLEXIBLE TRANSORAL UPPER GASTROINTESTINAL ENDOSCOPY UPPER ENDOSCOPY Consent: Indications for the procedure and potential complications of bleeding, perforation, reaction to medications and missed diagnosis were discussed with the patient and informed consent was obtained. Instrument: Olympus GIF H 190 J mid size upper endoscope Monitoring: Vital signs and clinical assessment, continuous EKG monitoring, Pulse oximetry, Carbon Dioxide monitoring and blood pressure monitoring were done throughout the procedure. Procedure: The patient was placed in the left lateral decubitis position and pre-procedure medications were administered and a bite block was placed. The endoscope was inserted into the mouth and advanced under direct vision to the third part of duodenum. A careful inspection was made as the upper endoscope was withdrawn including a retroflexed examination of the proximal stomach; Findings and interventions are described below. Findings: Larynx:normal Esophagus: GE junction at 38 cm, diaphragm hiatus at 38 cm, few islands of salmon pink tissue suspicious for barretts, bx taken, also mild esophagitis, bx taken from distal esophagus as well Stomach: patchy erythema and coarse mucosa . Biopsies were obtained. Grade 2 flap valve on retroflexed examination of the cardia. Duodenum: Normal bulb and descending duodenum, bx taken Intervention: Biopsies as noted above, Impression/Findings: gastritis esophagitis possible barretts esophagus PLAN: cont with PPI avoid smoking and drinking, vaping GERD precautions repeat EGD in about 3-5 yrs
[2024-07-22 11:49] VITALS: BP 96/46; PULSE 74; RESP 16; TEMP 36.3; O2SAT 97
[2024-07-22 12:00] VITALS: BP 93/58; PULSE 62; RESP 16; O2SAT 98
[2024-07-22 12:15] VITALS: BP 98/60; PULSE 62; RESP 16; O2SAT 98
[2024-07-22 12:30] VITALS: BP 97/60; PULSE 55; RESP 16; O2SAT 98
[2024-07-22 12:43] VITALS: BP 101/62; PULSE 62; RESP 16; TEMP 36.7; O2SAT 98
== END 2024-07-22 13:35 | disposition home or self-care (01) ==
PROVIDERS: Visit Provider Internal Medicine Gastroenterology
PROC: 0DJ08ZZ Inspection of Upper Intestinal Tract, Via Natural or Artificial Opening Endoscopic (ICD-10-PCS; CPT 43235; principal; 2024-07-22 12:00)
DX: K20.80 Other esophagitis without bleeding (principal); K29.60 Other gastritis without bleeding; K22.70 Barrett's esophagus without dysplasia; J45.909 Unspecified asthma, uncomplicated; F17.200 Nicotine dependence, unspecified, uncomplicated
CPT/HCPCS: 43239; 88305; 88313; 88342; J2003; J2250; J2704

== ENCOUNTER → 2024-07-22 09:38 | Outpatient (BNV) | payer MEDICAID, SELFPAY | PROVIDERS: Visit Provider Internal Medicine Gastroenterology | DX: K29.70 Gastritis, unspecified, without bleeding (principal); K20.90 Esophagitis, unspecified without bleeding | CPT/HCPCS: 43239 ==

== ENCOUNTER 2024-08-04 08:48 | Emergency (ER) | payer OTHER, SELFPAY ==
--- NOTE | ~2024-08-04 | XR_ITS ---
EXAMINATION: XR CHEST CLINICAL INFORMATION: cough with emesis, r/o aspiration pna COMPARISON: 06/24/2024. TECHNIQUE: 2 views of the chest were obtained. FINDINGS: The cardiac, hilar, and mediastinal contours are normal. The lungs are clear bilaterally. There is no pneumothorax or pleural effusion. There is no focal osseous or soft tissue abnormality. XR/XR chest 2V IMPRESSION: Normal chest. Electronically signed by: Rajan Castillo MD 08/04/2024 11:24 AM EDT
[2024-08-04 08:55] VITALS: BP 120/74; PULSE 67; RESP 16; TEMP 36.6; O2SAT 99; BMI 26.2
[2024-08-04 09:18] LABS: MANUAL DIFF FLAG NO
[2024-08-04 09:21] LABS: Appearance Urine Clear; Color Urine Dark Yellow; Glucose Urine UA Negative (Negative); Leukocyte Esterase Urine Negative (Negative); Nitrite Urine Negative (Negative); Specific Gravity - Urine >= 1.030 (1.005-1.025); UMIC TRIGGER UACC YES; Urine Blood Negative (Negative); Urine Ketones 15 mg/dL (Negative); Urine Protein 30 (1+) mg/dL (Neg-Trace)
[2024-08-04 09:21] LABS: Basophils Absolute Auto 0.1 X10*3/uL (0.0-0.2); Basophils Percent Auto 0.6 % (0-2); Eosinophils Absolute Auto 0.1 X10*3/uL (0.0-0.4); Eosinophils Percent Auto 1.2 % (0-4); Hematocrit 43.3 % (42.0-52.0); Hemoglobin 14.7 g/dl (14.0-18.0); Imm Gran Abs Auto 0.05 X10*3/uL (0.00-0.03); Imm Gran Pct Auto 0.6 % (0.0-0.4); Lymphocytes Absolute Auto 1.6 X10*3/uL (1.2-4.9); Lymphocytes Percent Auto 17.8 % (20-40); Mean Corpuscular HGB Conc 33.9 g/dl (31.0-36.0); Mean Corpuscular Hemoglobin 29.5 pg (27.0-33.0); Mean Corpuscular Volume 86.9 fL (80.0-98.0); Monocytes Absolute Auto 1.3 X10*3/uL (0.1-1.2); Neutrophils Percent Auto 65.8 % (45-73); Platelet Count 222 X10*3/uL (160-400); Red Blood Count 4.98 X10*6/uL (4.60-5.80); Red Cell Distribution Width 12.2 % (11.0-16.0); White Blood Count 9.1 X10*3/uL (4.8-10.8)
[2024-08-04 09:27] LABS: Bacteria Urine None Seen (None Seen); RBC Urine 0-2 /HPF (0-2); WBC Urine 0-5 /HPF (0-5)
[2024-08-04 09:40] LABS: Alanine Aminotransferase 14 U/L (0-40); Albumin Level 4.6 g/dL (3.5-5.0); Alkaline Phosphatase 48 U/L (39-117); Anion Gap 9 (12-20); Aspartate Amino Transferase 21 U/L (5-37); Bilirubin Direct 0.4 mg/dL (0.0-0.5); Bilirubin Total 1.1 mg/dL (0.0-1.0); Blood Urea Nitrogen 15 mg/dL (9-16); Calcium 9.8 mg/dL (8.4-10.2); Carbon Dioxide 27 mmol/L (22-29); Chloride 108 mmol/L (96-108); Creatinine Clr Calc Pharmacy 107.6; Estimated Glomerular Filt Rate > 60; Glucose Random 99 mg/dL (60-115); Lipase 19 U/L (8-78); Potassium 3.4 mmol/L (3.3-5.1); Sodium 141 mmol/L (135-145); Total Protein 7.5 g/dL (6.5-8.0)
--- NOTE | 2024-08-04 10:52 | ED.ABDPAIN ---
HPI - Abdominal Pain General Chief Complaint: Abdominal Pain Stated Complaint: Abd pain, procedure 1 week ago Time Seen by Provider: 08/04/24 10:52 Source: patient Mode of arrival: ambulatory Limitations: no limitations History of Present Illness ED Provider: Geovanna Lagunas PA-C HPI narrative: well-appearing 28-year-old male with history of esophagitis gastritis and potential POD presenting to the emergency department today for 2 days of epigastric discomfort in the right upper quadrant. He reports Saturday having some of his usual abdominal discomfort which has always been present from a month ago he did not have much of an appetite that day so went to bed he woke up at approximately 04:00 in the morning 2 days ago and had 3 episodes of nausea or vomiting. He did cough a little bit during this time and reports having blood-tinged sputum however he has not vomited again since that time and his pain has not happened in severity whatsoever but he continues to have this discomfort. On June 24 1 month ago he was seen here in the ED admitted for a GI bleed. He had a CT that showed a hiatal hernia gastritis and potential POD. He is followed up by Gastroenterology had an endoscopy on 07/22 week and a half ago. He had 4 biopsies taken there is concern for Garduno's esophagus he was also diagnosed with gastritis and esophagitis. It was recommended he repeat the EGD in 3-5 years. Patient was also placed on omeprazole as well as sucralfate. He reports the instructions on sucralfate state that he needs to take the medicine 1 hour prior to eating however he has not taken that medicine because he states he is always so busy and does not have time to eat so his not been taking it as prescribed if that most over the last 10 days he has only taken 1 or 2 pills about a day. Food continues to bother him but no worse than before. He is not sure what his follow up with is with GI. He denies any EtOH use for poor food exposures he is without any fevers chills or sweats no coughing he no longer feels nauseous has no backache or symptoms and he does not feel short of breath. Denies any body aches or joint pain otherwise. drinking liquids does not cause pain worse he is able tolerate p.o. fluids and void regularly. denies any weight loss. last bowel movement was 2 days ago non bloody nonpainful MD elicited complaint: abdominal pain Pertinent past history: gastrointestinal bleeding and other (gastritis and PUD) Onset (ago): day(s) (2) Pain Consistency: intermittent Location: RUQ Severity: mild Quality: aching Radiation: epigastric Exacerbating factors: eating Relieving factors: medication Context: other (poor medication adheremce) Associated symptoms: nausea and vomiting Treatments prior to arrival: other (none) Related Data Previous Rx's ?Medication ?Instructions ?Recorded guaifenesin 100 mg/5 mL oral liquid 100 mg (5 mL) PO Q4H PRN Cough 06/26/24 #200 mL sucralfate 100 mg/mL oral 10 ml PO BID #1,000 mL 07/02/24 suspension omeprazole 40 mg capsule,delayed 40 mg PO BID@0630,1630 #60 caps 07/23/24 release Allergies Allergy/AdvReac Type Severity Reaction Status Date / Time No Known Allergies Allergy Verified 08/04/24 09:00 [No Known Allergies*] FOR[facility], LAT[facility] Past Medical History Attestation statement: The following information was validated with the patient. Source: old records reviewed and nursing notes reviewed Medical History Asthma Surgical History Surgical history unknown Social History Social History Household Members: Family Housing: House Do you presently have visiting nurse or other home services: No Patient Tobacco Use Status: Current everyday Tobacco user Tobacco use type: Smokeless Tobacco e-Cigarette/Vaping Use: Currently Using Second Hand Smoke Exposure: No Advance Directives: Yes Advance Directives Information Provided: Yes Advance Directives on File: No service: No Physical Exam ED Vital Signs: Vital Signs - 24 hr 08/04/24 08:55 08/04/24 11:23 08/04/24 11:38 Temperature 97.8 F 98.6 F 98.6 F Pulse Rate 67 59 59 Respiratory Rate 16 16 16 Blood Pressure 120/74 115/69 115/69 Pulse Oximetry 99 98 98 Oxygen Delivery Method Room Air Room Air Room Air BMI result Body Mass Index 26.2 Const General: cooperative, healthy appearing, comfortable and no acute distress Nutritional Appearance: average body habitus Orientation/consciousness: patient oriented x3 HENMT Head: Yes normal to inspection and Yes normocephalic General nose exam: Normal external nose present and Normal nares present Face and sinus: Yes normal facial exam Mouth: Normal oral and palatal mucosa present, lip normal and tongue normal Teeth and gingiva: dentition normal Throat: Yes posterior oropharynx normal Eyes General: appearance normal, both eyes and all related structures Alignment and Position: alignment normal Periorbital: periorbital findings normal Eyelids: Yes eyelids normal Conjunctivae: conjunctivae normal Sclerae: sclerae normal Corneas: corneas normal Neck Neck: Yes normal visual inspection and Yes no lymphadenopathy Chest Chest palpation & inspection: normal inspection of the chest and normal palpation of entire chest wall Resp Effort & Inspection: normal respiratory effort and able to speak in complete sentences Auscultation: clear to auscultation bilaterally Cardio Jugular venous distension: no JVD Rate: regular rate Rhythm: regular rhythm GI Inspection: Yes normal to inspection Palpation (GI): Soft to palpation and Other GI palpation findings present ( negative peritoneal signs) Auscultation: normal bowel sounds Rectal Exam - Male: Yes deferred Skin Other: warm and well perfused General skin exam: no rashes or lesions noted Neuro General: patient oriented x3 Medical Decision Making Medical Decision Making MDM Narrative: well-appearing 28-year-old male with a recent diagnosis of esophagitis gastritis and potential POD presenting to emergency department today for evaluation of blood-tinged .emesis there has been no vomiting in the last 24-36 hours he is tolerating p.o. fluids and voiding regularly hydrated on exam lungs clear with normal vitals afebrile O2 soft nontender abdomen. Abdominal labs were done along with a chest x-ray to screen for potential aspiration pneumonia. Denying any infectious symptoms COVID and flu testing were deferred. Compared to his labs from 1 month ago which showed anemia patient does not have any events though that today there is no evidence of acute pancreatitis, hepatobiliary disease or leukocytosis and metabolic dysfunction. Patient's presentation today is likely due to patient is here. We discussed his medications in great detail both the sucralfate as well as the proton pump inhibitor and how this helps to improve his condition. After having a better understanding of how this medicine will help him patient demonstrated verbal understanding agreed to take it. Patient will contact his GI specialist who has scheduled follow up if needed he will return to the ED if worse. As he shows no evidence of acute dehydration warranting IV fluids and pain is well controlled patient will be discharged home stable he agrees with the plan Differential Diagnosis Differential Diagnoses: The differential diagnosis associated with the presentation includes see above Admission/Observation reassuring labs and presentation today no further escalation of care is warranted at this time Lab Data MDM Lab Attestation statement: I reviewed the patient's lab results. 08/04/24 09:07 08/04/24 09:07 Labs: Lab Results 08/04/24 08/04/24 Range/Units 09:07 09:14 WBC 9.1 (4.8-10.8) X10*3/uL RBC 4.98 (4.60-5.80) X10*6/uL Hgb 14.7 (14.0-18.0) g/dl Hct 43.3 (42.0-52.0) % MCV 86.9 (80.0-98.0) fL MCH 29.5 (27.0-33.0) pg MCHC 33.9 (31.0-36.0) g/dl RDW 12.2 (11.0-16.0) % Plt Count 222 D (160-400) X10*3/uL MPV 10.0 (9.4-12.4) fL Immature Gran % (Auto) 0.6 H (0.0-0.4) % Neut % (Auto) 65.8 (45-73) % Lymph % (Auto) 17.8 L (20-40) % [place] % (Auto) 14.0 H (2-11) % Eos % (Auto) 1.2 (0-4) % Baso % (Auto) 0.6 (0-2) % Lymph # (Auto) 1.6 (1.2-4.9) X10*3/uL [place] # (Auto) 1.3 H (0.1-1.2) X10*3/uL Eos # (Auto) 0.1 (0.0-0.4) X10*3/uL Baso # (Auto) 0.1 (0.0-0.2) X10*3/uL Abs Immat Gran (auto) 0.05 H (0.00-0.03) X10*3/uL Absolute Neuts (auto) 6.0 (2.0-8.3) x10*3/uL Absolute Nucleated RBC 0.000 (0.0-0.012) X10*3/uL Nucleated RBC % (auto) 0.0 (0.0-0.2) /100WBC Sodium 141 (135-145) mmol/L Potassium 3.4 (3.3-5.1) mmol/L Chloride 108 (96-108) mmol/L Carbon Dioxide 27 (22-29) mmol/L Anion Gap 9 L (12-20) BUN 15 (9-16) mg/dL Creatinine 0.98 (0.5-1.4) mg/dL Estim Creat Clear Calc 107.6 Estimated GFR > 60 Random Glucose 99 (60-115) mg/dL Calcium 9.8 D (8.4-10.2) mg/dL Total Bilirubin 1.1 H (0.0-1.0) mg/dL Direct Bilirubin 0.4 (0.0-0.5) mg/dL AST 21 (5-37) U/L ALT 14 (0-40) U/L Alkaline Phosphatase 48 (39-117) U/L Total Protein 7.5 (6.5-8.0) g/dL Albumin 4.6 (3.5-5.0) g/dL Lipase 19 (8-78) U/L Urine Color Dark Yellow Urine Appearance Clear Urine pH 6.0 (5.0-9.0) Ur Specific [place] >= 1.030 H (1.005-1.025) Urine Protein 30 (1+) H (Neg-Trace) mg/dL Urine Glucose (UA) Negative (Negative) mg/dL Urine Ketones 15 (Negative) mg/dL Urine Blood Negative (Negative) Urine Nitrite Negative (Negative) Ur Leukocyte Esterase Negative (Negative) Urine RBC 0-2 (0-2) /HPF Urine WBC 0-5 (0-5) /HPF Ur Squamous Epith Cells 3-5 (0-2) /HPF Urine Bacteria None Seen (None Seen) Hyaline Casts 3-5 (0-2) /LPF Independent Interpretation I performed an independent interpretation of an: Plain X-Ray Radiology Impression Discussion of test interpretation with radiology: I have reviewed the radiologist's reading. 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 that is already resolved Chronic Conditions Patient?s care impacted by: Other gastritis and esophagitis Discharge Plan Discharge Clinical Impression: Alexandra-Bautista syndrome, Abdominal pain Acute gastritis Qualifiers: Gastritis type: unspecified gastritis Gastritis bleeding: presence of bleeding unspecified Qualified Code(s): K29.00 - Acute gastritis without bleeding Patient Disposition: Home, Self-Care Instructions: Gastritis (DC), Diet for Stomach Ulcers and Gastritis (ED), Alexandra-Bautista Syndrome (ED) Additional Instructions: You were seen in the emergency department today for epigastric and right upper quadrant pain. He has known history of PUD as well as gastritis and esophagitis. You have had poor medication adherence with the sucralfate. We discussed the mechanism of action of this medication however records and heels her stomach lining without taking this medication unfortunately the erosive nature of this disease will not improve. Had blood work today that shows no evidence of acute blood loss or anemia or leukocytosis concerning for infection. Other labs reassuring as well. Given the limited nature of this is recommended that you continue to take your prescribed medications improve your healthcare outcomes. Measure able to tolerate p.o. fluids and voiding regularly recommended increasing her fluids. Avoid aggravating foods as below and return for any acute concerns -AVOID alcohol, spicy foods, Motrin/Aleve medications, and eating past 8:00 at night. -You may take antacids such as Maalox or Tums for acute symptoms but realize that these medications will not prevent your symptoms. -Remain upright for at least 45 minutes following meals. -Follow-up with your primary care doctor or gastroenterology. -Return to ED if you develop fever, chills, increased pain, vomiting. Other things to do to prevent symptoms: -Lose weight (if you are overweight) -Raise the head of your bed by 6 to 8 inches (for example, by putting blocks of wood or rubber under 2 legs of the bed or a Styrofoam wedge under the mattress) -Avoid foods that make your symptoms worse (examples include coffee, chocolate, alcohol, peppermint, and fatty foods) -Cut down on the amount of alcohol you drink -Stop smoking, if you smoke -Eat a bunch of small meals each day, rather than 2 or 3 big meals -Avoid lying down for 3 hours after a meal Prescriptions: No Action sucralfate 100 mg/mL suspension 10 ml PO BID Qty: 1000 2RF omeprazole 40 mg capsule,delayed release(DR/EC) 40 mg PO BID@0630,1630 Qty: 60 3RF guaifenesin 100 mg/5 mL Liquid 100 mg PO Q4H PRN (Reason: Cough) Qty: 200 0RF Referrals: [facility] [Provider Group] Interventions: ED Discharge Assessment Last Done: 08/04/24 11:38 Discharge Date/Time: 08/04/24 11:39 Print Language: Amharic
[2024-08-04 11:23] VITALS: BP 115/69; PULSE 59; RESP 16; TEMP 37; O2SAT 98
[2024-08-04 11:38] VITALS: BP 115/69; PULSE 59; RESP 16; TEMP 37; O2SAT 98
== END 2024-08-04 11:39 | disposition home or self-care (01) ==
PROVIDERS: Emergency Provider Emergency Medicine
DX: K22.6 Gastro-esophageal laceration-hemorrhage syndrome (principal); K29.00 Acute gastritis without bleeding; R10.11 Right upper quadrant pain; J45.909 Unspecified asthma, uncomplicated; F17.200 Nicotine dependence, unspecified, uncomplicated
CPT/HCPCS: 36415; 71046; 80048; 80076; 81001; 83690; 85025; 99283

== ENCOUNTER → 2024-08-04 11:13 | Outpatient (BNV) | payer OTHER, SELFPAY | PROVIDERS: Emergency Provider Emergency Medicine; Visit Provider Radiology Diagnostic Radiology | DX: R05.9 Cough, unspecified (principal); R11.10 Vomiting, unspecified | CPT/HCPCS: 71046 ==

== ENCOUNTER 2024-08-07 10:45 | Outpatient (AMB) | payer OTHER, SELFPAY ==
--- NOTE | 2024-08-07 10:48 | MHC.OFFVIS ---
Vital Signs 08/07/24 10:49 Height 5 ft 8 in Weight 172 lb BMI 26.1 BP 105/60 Blood Pressure Location Lt brachial Position Sitting Pulse 68 Intake Visit Reasons: acute GI bleed Intake Note: Patient complex follow up for acute GI bleed / EGD results Patient cc: vomit with blood pass weekend, abdominal pain, slight acid reflex, some morning swallowing discomfort. 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 Biopsies were obtained. Grade 2 flap valve on retroflexed examination of the cardia. 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 VITAL SIGNS:see workflow HEENT: Nonicteric sclerae, PERRLA, EOMI. Oropharynx clear. Moist mucous membranes. Conjunctivae appear well perfused. No thyroid mass. CHEST: Chest wall is nontender. HEART: Regular rate and rhythm without murmurs. LUNGS: Clear to auscultation bilaterally. ABDOMEN: Soft, positive bowel sounds, nontender, no organomegaly.no flank tenderness SKIN: No rash, no excessive bruising, petechiae, or purpura. NEUROLOGIC: Cranial nerves II-XII intact without motor/sensory deficit. Psych: normal affect A/P:possible nsaid induced gastric damage and GERD with esophagitis, and hematemesis, slow recovery 1/ paper work fille dout for fmla etc 2/ cont with PPI 3/ carafate bid 4/ h pylori at future date, advised stop vaping, and avoid nsaids PFSH Medical History Asthma Surgical History Surgical history unknown Social History Household Members: Family Housing: House Do you presently have visiting nurse or other home services: No Patient Tobacco Use Status: Current everyday Tobacco user Tobacco use type: Smokeless Tobacco e-Cigarette/Vaping Use: Currently Using Second Hand Smoke Exposure: No service: No Physical Exam Vital Signs: Last Vital Signs Pulse 68 08/07/24 10:49 BP 105/60 08/07/24 10:49 BMI result Body Mass Index 26.1 Assessment & Plan Assessment & Plan (1) Acute GI bleeding: Code(s): K92.2 - Gastrointestinal hemorrhage, unspecified Category: Medical Plan: as above Coding Level of Care Code Est Pt Level 4 (68976) Diagnoses Acute GI bleeding K92.2
[2024-08-07 10:49] VITALS: BP 105/60; PULSE 68; BMI 26.1
== END 2024-08-07 11:16 | disposition home or self-care (01) ==
LOC: HO.HGI 10:45
PROVIDERS: Visit Provider Internal Medicine Gastroenterology
DX: K92.2 Gastrointestinal hemorrhage, unspecified (principal)
CPT/HCPCS: 99214

== ENCOUNTER → 2024-08-07 10:45 | Outpatient (BNVA) | payer OTHER, SELFPAY | PROVIDERS: Visit Provider Internal Medicine Gastroenterology | DX: K92.2 Gastrointestinal hemorrhage, unspecified (principal) | CPT/HCPCS: 99212 ==